=== PATIENT | male | born 1955 | race Caucasian/White ===

== ENCOUNTER 2016-06-27 15:59 | Observation (INO) | payer MEDICARE ==
[~2016-06-27] VITALS: Ht 188 cm; Wt 75.0 kg
[~2016-06-27 15:59] MED LIST: ALPR.5 PO; ASPI-156 PO; ATOR40TA16 PO; CEFT2INJ2 IV; EFFE150C PO; HYDR-3288 PO; HYDR50TA15 PO; LANTUS2P SQ/IV; LISI-515 PO; METF500T PO; MIRA0.12 PO; NICO7DIS5 T-DERMAL; NOVOLOGSS SQ; PLAV75TA29 PO; WALKER/FOLDING1 MIS
[2016-06-27 16:05] VITALS: BP 131/82; PULSE 85; RESP 14; TEMP 98.1; O2SAT 98
[2016-06-27 17:45] VITALS: BP 192/86; PULSE 80; RESP 16; O2SAT 100
[2016-06-27] MEDS ORDERED: SODIUM CHLORIDE 0.9% FLUSH 5 ML FLUSH IVF PRN (18:00)
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
[2016-06-27 18:10] VITALS: O2SAT 98
[2016-06-27 18:47] LABS: AUTOMATED NEUTROPHIL # 2.4 TH/MM3 (1.8-7.7); BASOPHIL % 0.4 % (0.0-2.0); EOSINOPHIL # 0.3 TH/MM3 (0-0.4); EOSINOPHIL % 5.2 % (0.0-4.0); HEMO FLAGS DIFF FINAL; LYMPHOCYTE # 1.9 TH/MM3 (1.0-4.8); MEAN CELL VOLUME 82.5 FL (80.0-100.0); MEAN CORPUSCULAR HEMOGLOBIN 26.6 PG (27.0-34.0); MEAN CORPUSCULAR HGB CONC 32.2 % (32.0-36.0); MONO % 9.3 % (0.0-8.0); NEUT % 47.1 % (16.0-70.0); PLATELET COUNT 321 TH/MM3 (150-450); RED BLOOD COUNT 4.01 MIL/MM3 (4.50-5.90); RED CELL DISTRIBUTION WIDTH 18.2 % (11.6-17.2)
[2016-06-27 18:52] LABS: APTT (PATIENT) 29.6 SEC (24.3-30.1); PROTHROMBIN TIME - PATIENT 10.7 SEC (9.8-11.6)
[2016-06-27 19:00] VITALS: BP 179/83; PULSE 76; RESP 14; O2SAT 96
[2016-06-27 19:05] LABS: BICARBONATE 22.7 MEQ/L (21.0-32.0); MAGNESIUM 2.1 MG/DL (1.5-2.5)
--- NOTE | 2016-06-27 19:43 | PD ---
Physical Exam Narrative General: The patient is well-developed well-nourished male, drowsy appearing on examination, however he is able to be aroused. Head and Neck exam: Head is normocephalic, evidence of an older-appearing abrasion along the right side of the forehead just above the eyebrow. Eyes: Pupils are equal round and reactive to light. Nose: Midline septum with pink mucous membranes Mouth: Dentition unremarkable. Moist mucus membranes. Posterior oropharynx is not erythematous. No tonsillar hypertrophy. Uvula midline. Airway patent. Neck: No palpable lymphadenopathy. No nuchal rigidity. No thyromegaly. Cardiovascular: Regular rate and rhythm without murmurs, gallops, or rubs. Lungs: Clear to auscultation bilaterally. No wheezes, rhonchi, or rales. Abdomen: Soft, without tenderness to palpation in all 4 quadrants of the abdomen. No guarding, rebound, or rigidity. Normal bowel sounds are audible. Extremities: No clubbing, cyanosis, or edema. 2+ pulses in bilateral upper extremities. 1+ pulse in the right lower extremity, no palpable pulse in the left lower extremity with a long capillary refill at 4 compared to the right. Both feet are slightly cold. The patient denies any pain to the touch of his feet. The patient has a slightly dusky coloration of the distal foot on the sole of the foot of the left foot compared to the right. Neurologic Exam: The patient is drowsy on exam although arousable. The patient quickly falls back asleep after answering simple questions. The patient has garbled speech although he has a history of a TBI. The Patient is able to move all extremities equally. Skin Exam: The Patient has bruises in various stages of healing on his extremities. The patient has occasional abrasions noted. On examination of the left lateral arm there is an area of swelling noted that palpates to be a subcutaneous cystic lesion. There is no tenderness on palpation. There is no fluctuance. There is no overlying erythema, however he has an abrasion overlying it. Data Data Last Documented VS Vital Signs Date Time Temp Pulse Resp B/P Pulse Ox O2 Delivery O2 Flow Rate FiO2 06/27/16 22:45 78 14 185/88 98 06/27/16 18:10 Room Air 06/27/16 16:05 98.1 Orders Basic Metabolic Panel (Bmp) (06/27/16 17:53) Complete Blood Count With Diff (06/27/16 17:53) Magnesium (Mg) (06/27/16 17:53) Prothrombin Time / Inr (Pt) (06/27/16 17:53) Act Partial Throm Time (Ptt) (06/27/16 17:53) Ecg Monitoring (06/27/16 17:53) Iv Access Insert/Monitor (06/27/16 17:53) Oximetry (06/27/16 17:53) Sodium Chloride 0.9% Flush (Ns Flush) (06/27/16 18:00) Cta Runoff W Iv Contrast W 3d (06/27/16 ) Creatine Kinase (Cpk) (06/27/16 17:53) CKMB (06/27/16 18:24) CKMB% (06/27/16 18:24) Ct Brain W/O Iv Contrast(Rout) (06/27/16 ) Ammonia (06/27/16 19:26) Chest, Single Ap (06/27/16 ) Electrocardiogram (06/27/16 ) Urinalysis - C+S If Indicated (06/27/16 19:28) Troponin I (06/27/16 19:29) Hepatic Functional Panel (06/27/16 19:30) Sodium Chlor 0.9% 1000 Ml Inj (Ns 1000 M (06/27/16 20:00) Drug Screen, Random Urine (06/27/16 19:54) Thyroid Stimulating Hormone (06/27/16 19:54) Alcohol (Ethanol) (06/27/16 19:54) Salicylates (Aspirin) (06/27/16 19:54) Tylenol (Acetaminophen) (06/27/16 19:54) ^ Straight Catheter (06/27/16 19:56) Iohexol 350 Inj (Omnipaque 350 Inj) (06/27/16 21:22) Urinary Catheter Insert/Apply (06/27/16 21:36) Admit Order (Ed Use Only) (06/27/16 22:48) Labs Laboratory Tests Test 06/27/16 06/27/16 06/27/16 18:24 19:56 20:02 White Blood Count 5.0 TH/MM3 Red Blood Count 4.01 MIL/MM3 Hemoglobin 10.6 GM/DL Hematocrit 33.0 % Mean Corpuscular Volume 82.5 FL Mean Corpuscular Hemoglobin 26.6 PG Mean Corpuscular Hemoglobin 32.2 % Concent Red Cell Distribution Width 18.2 % Platelet Count 321 TH/MM3 Mean Platelet Volume 7.3 FL Neutrophils (%) (Auto) 47.1 % Lymphocytes (%) (Auto) 38.0 % Monocytes (%) (Auto) 9.3 % Eosinophils (%) (Auto) 5.2 % Basophils (%) (Auto) 0.4 % Neutrophils # (Auto) 2.4 TH/MM3 Lymphocytes # (Auto) 1.9 TH/MM3 Monocytes # (Auto) 0.5 TH/MM3 Eosinophils # (Auto) 0.3 TH/MM3 Basophils # (Auto) 0.0 TH/MM3 CBC Comment DIFF FINAL Differential Comment Prothrombin Time 10.7 SEC Prothromb Time International 1.0 RATIO Ratio Activated Partial 29.6 SEC Thromboplast Time Sodium Level 135 MEQ/L Potassium Level 4.0 MEQ/L Chloride Level 101 MEQ/L Carbon Dioxide Level 22.7 MEQ/L Anion Gap 11 MEQ/L Blood Urea Nitrogen 14 MG/DL Creatinine 0.79 MG/DL Estimat Glomerular Filtration 100 ML/MIN Rate Random Glucose 69 MG/DL Calcium Level 8.7 MG/DL Magnesium Level 2.1 MG/DL Total Bilirubin 0.3 MG/DL Direct Bilirubin LESS THAN 0.1 MG/DL Indirect Bilirubin 0.2 MG/DL Aspartate Amino Transf 34 U/L (AST/SGOT) Alanine Aminotransferase 19 U/L (ALT/SGPT) Alkaline Phosphatase 104 U/L Total Creatine Kinase 320 U/L Creatine Kinase MB 3.1 NG/ML Creatine Kinase MB % 1.0 % Total Protein 7.3 GM/DL Albumin 3.2 GM/DL Thyroid Stimulating Hormone 1.120 uIU/ML 3rd Gen Salicylates Level 6.6 MG/DL Acetaminophen Level LESS THAN 2.0 MCG/ML Ethyl Alcohol Level LESS THAN 3 MG/DL Ammonia 11 MCMOL/L Troponin I LESS THAN 0.02 NG/ML Urine Color YELLOW Urine Turbidity CLEAR Urine pH 5.0 Urine Specific [place] 1.011 Urine Protein NEG mg/dL Urine Glucose (UA) NEG mg/dL Urine Ketones 40 mg/dL Urine Occult Blood SMALL Urine Nitrite NEG Urine Bilirubin NEG Urine Urobilinogen LESS THAN 2.0 MG/DL Urine Leukocyte Esterase NEG Urine RBC 21 /hpf Urine WBC 1 /hpf Urine Bacteria RARE /hpf Urine Mucus FEW /lpf Microscopic Urinalysis Comment CULT NOT INDICATED Urine Opiates Screen NEG Urine Barbiturates Screen NEG Urine Amphetamines Screen NEG Urine Benzodiazepines Screen POS Urine Cocaine Screen NEG Urine Cannabinoids Screen NEG MDM Medical Record Reviewed: Yes Supervised Visit with CRISTIN: Yes Differential Diagnosis Peripheral vascular disease status continued to progress, versus acute peripheral arterial thrombosis, versus embolic event Narrative Course During the course of the patients emergency department visit, the patients history, examination, and differential diagnosis were reviewed with the patient. The patient had IV access obtained and blood work sent for analysis. The patient was placed on a grips with oximetry and blood pressure monitoring. The patient was initially evaluated by Scott, the physician bilingual legal assistant. Please see his complete history and physical. The patient was checked out to me at the conclusion of his shift. The patient on my arrival to the room is drowsy and difficult to keep awake to answer questions. The patient 's initial blood work revealed a blood sugar of 69. Therefore the patient's blood sugar was immediately repeated. The patient's blood sugar is 72. The patient was provided normal saline at a rate of 100 mL per hour. The patients laboratory studies were reviewed and remarkable for a white count of 5, hemoglobin 10.6, platelets 321 with 9.3 monocytes. Basic metabolic profile is remarkable for sodium of 135, glucose 69, CPK 320, magnesium 2.1, INR 1.0, PT 10.7, PTT 29.6. Radiology studies were reviewed and remarkable for CT scan of the brain that showed no acute abnormality, frontal sinus disease is noted. Chest x-ray reveals no acute cardiopulmonary process, fracture deformity at the left proximal humerus is noted, however this is chronic from reviewing the record. CTA with runoff reveals areas of occlusion/partial occlusion in the left lower extremity. The patient's case was discussed with the family practice residents who did agree to admit the patient for further evaluation and treatment at this time. The patient will be admitted to the hospital for altered mentation and peripheral arterial disease. Jess Willson MD Jun 27, 2016 19:43
[2016-06-27 19:54] LABS: CKMB 3.1 NG/ML (0.5-3.6)
[2016-06-27] MEDS: SODIUM CHLOR 0.9% 1000 ML INJ 1,000 ML IV SCH (19:54)
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
--- NOTE | 2016-06-27 20:32 | RADRPT ---
EXAM DATE/TIME: 06/27/2016 19:35 [facility] COMPARISON: CHEST SINGLE AP, May 08, 2016, 16:26. INDICATIONS : Wheezing. Short of breath. MEDICAL HISTORY : Hypertension. Diabetes mellitus type II. SURGICAL HISTORY : None. ENCOUNTER: Initial ACUITY: 1 day PAIN SCORE: Non-responsive. LOCATION: Bilateral chest FINDINGS: The heart size is normal. The lungs are clear. The costophrenic angles are clear. The heart is str ucturally normal. There is a fracture deformity seen at the proximal left humerus. This was present previously. CONCLUSION: 1. No acute cardiopulmonary process. 2. Fracture deformity at the left proximal humerus. Ezequiel Adamson MD on June 27, 2016 at 20:11 Board Certified Radiologist. This report was verified electronically.
[2016-06-27 20:51] LABS: ALKALINE PHOSPHATASE 104 U/L (45-117); ALT (GPT) 19 U/L (12-78); AST (GOT) 34 U/L (15-37); INDIRECT BILIRUBIN 0.2 MG/DL (0.0-0.8); TOTAL BILIRUBIN ADULT 0.3 MG/DL (0.2-1.0)
[2016-06-27 20:58] LABS: ACETAMINOPHEN LESS THAN 2.0 MCG/ML (10.0-30.0)
[2016-06-27] MEDS ORDERED: IOHEXOL 350 MG/ML 10 ML VIAL (for RAD DIAG) IV ONE (21:22)
--- NOTE | 2016-06-27 21:54 | RADRPT ---
EXAM DATE/TIME: 06/27/2016 21:18 [facility] COMPARISON: CT BRAIN W/O CONTRAST, April 30, 2016, 12:09. INDICATIONS : Altered mental status; generalized weakness. RADIATION DOSE: 57.71 CTDIvol (mGy) MEDICAL HISTORY : Cerebrovascular disease. Parkinsons. Hypertension.TBI; Diabetes. SURGICAL HISTORY : None. ENCOUNTER: Initial ACUITY: 1 day PAIN SCALE: 0/10 LOCATION: cranial TECHNIQUE: Multiple contiguous axial images were obtained of the head. Using automated exposure control and adj ustment of the mA and/or kV according to patient size, radiation dose was kept as low as reasonably a chievable to obtain optimal diagnostic quality images. FINDINGS: CEREBRUM: The ventricles are normal for age. No evidence of midline shift, mass lesion, hemorrhage or acute in farction. No extra-axial fluid collections are seen. POSTERIOR FOSSA: The cerebellum and brainstem are intact. The 4th ventricle is midline. The cerebellopontine angle i s unremarkable. EXTRACRANIAL: The visualized portion of the orbits is intact. There is mucosal disease of the frontal sinuses. SKULL: The calvaria is intact. No evidence of skull fracture. CONCLUSION: 1. No intracranial abnormality seen. 2. Frontal sinus disease. Ezequiel Adamson MD on June 27, 2016 at 21:52 Board Certified Radiologist. This report was verified electronically.
[2016-06-27 22:10] LABS: AMPHETAMINE, URINE NEG (NEG); BARBITURATES, URINE NEG (NEG); COCAINE, URINE NEG (NEG)
[2016-06-27 22:12] LABS: BACTERIA, URINE RARE /hpf; BLOOD, URINE SMALL (NEG); COMMENT (UR) CULT NOT INDICATED; CULTURE IF INDICATED CULT NOT INDICATED; GLUCOSE,URINE NEG (NEG); KETONE, URINE 40 mg/dL (NEG); MUCUS URINE FEW /lpf (OCC); NITRITE,URINE NEG (NEG); URINE COLOR YELLOW (YELLW/STRAW)
[2016-06-27 22:45] VITALS: BP 185/88; PULSE 78; RESP 14; O2SAT 98
[2016-06-28] MEDS ORDERED: hydrALAZINE HCL 10 MG TAB PO ONE (00:15)
[2016-06-28] MEDS ORDERED: GLUCAGON 1 MG/ML VIAL OTHER PRN (00:45)
[2016-06-28] MEDS ORDERED: SODIUM CHLORIDE 0.9% FLUSH 5 ML FLUSH FLUSH PRN (00:45)
[2016-06-28] MEDS ORDERED: ACETAMINOPHEN 325 MG TAB PO PRN (00:45)
[2016-06-28] MEDS ORDERED: NALOXONE HCL 0.4 MG/ML AMP IV PRN (00:45)
[2016-06-28] MEDS ORDERED: ALPRAZolam 0.5 MG TAB PO PRN (00:45)
[2016-06-28] MEDS ORDERED: DEXTROSE 50% IN WATER 50 ML VIAL(D50) IV PUSH PRN (00:45)
[2016-06-28] MEDS: hydrALAZINE HCL 50 MG TAB PO SCH ×2 (00:45→09:26)
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
[2016-06-28 01:28] VITALS: O2SAT 98
[2016-06-28] MEDS ORDERED: ENALAPRILAT 1.25 MG/ML VIAL IV PUSH PRN (02:00)
[2016-06-28 03:01] VITALS: BP 174/79; PULSE 80; RESP 16; O2SAT 98
[2016-06-28] MEDS ORDERED: RESP: ALBUTEROL 2.5 MG/IPRATROPIUM 0.5 MG NEB (PRN) NEB (03:15)
[2016-06-28] MEDS: SODIUM CHLOR 0.9% 1000 ML INJ 1,000 ML IV SCH (03:42)
[2016-06-28 03:55] VITALS: BP 160/69; PULSE 77; RESP 18; TEMP 96.3; O2SAT 99
[2016-06-28] MEDS: ACETAMINOPHEN/HYDROcodone 325 MG/5 MG TAB PO PRN ×2 (04:05→09:34)
[2016-06-28 06:05] LABS: AUTOMATED NEUTROPHIL # 3.9 TH/MM3 (1.8-7.7); BASOPHIL % 0.3 % (0.0-2.0); EOSINOPHIL # 0.3 TH/MM3 (0-0.4); EOSINOPHIL % 3.7 % (0.0-4.0); HEMO FLAGS DIFF FINAL; LYMPH % 28.7 % (9.0-44.0); LYMPHOCYTE # 1.9 TH/MM3 (1.0-4.8); MEAN CORPUSCULAR HEMOGLOBIN 26.7 PG (27.0-34.0); MEAN CORPUSCULAR HGB CONC 32.5 % (32.0-36.0); MONO % 9.1 % (0.0-8.0); NEUT % 58.2 % (16.0-70.0); PLATELET COUNT 313 TH/MM3 (150-450); RED BLOOD COUNT 4.26 MIL/MM3 (4.50-5.90); RED CELL DISTRIBUTION WIDTH 17.6 % (11.6-17.2); WHITE BLOOD COUNT 6.8 TH/MM3 (4.0-11.0)
[2016-06-28 06:36] LABS: BICARBONATE 19.5 MEQ/L (21.0-32.0); POTASSIUM 3.8 MEQ/L (3.5-5.1)
[2016-06-28 06:38] LABS: HDL CHOLESTEROL 44.6 MG/DL (40.0-60.0)
[2016-06-28] MEDS ORDERED: INSULIN ASPART SUPPLEMENTAL SCALE SQ SCH (07:00)
[2016-06-28 08:26] VITALS: BP 175/82; PULSE 81; RESP 20; TEMP 96.9; O2SAT 97
[2016-06-28 08:33] VITALS: O2SAT 97
[2016-06-28] MEDS ORDERED: ENOXAPARIN SODIUM 40 MG/0.4 ML SYRINGE SQ SCH (09:00)
[2016-06-28] MEDS ORDERED: VENLAFAXINE HCL XR 75 MG CAP PO SCH (09:00)
[2016-06-28] MEDS ORDERED: CLOPIDOGREL 75 MG TAB PO SCH (09:00)
[2016-06-28] MEDS ORDERED: SODIUM CHLORIDE 0.9% FLUSH 5 ML FLUSH FLUSH SCH (09:00)
[2016-06-28] MEDS ORDERED: ERGOCALCIFEROL (VIT D2) 50,000 UNIT CAP PO SCH (09:00)
[2016-06-28] MEDS ORDERED: ATORVASTATIN 40 MG TAB PO SCH (09:00)
[2016-06-28] MEDS ORDERED: ASPIRIN EC 325 MG TABEC PO SCH (09:00)
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
--- NOTE | 2016-06-28 09:37 | HHI.FF ---
Face to Face Verification Diagnosis: (1) Peripheral vascular disease (2) Balance disorder (3) Frequent falls Physical Therapy Order: Evaluate and Treat, Improve ambulation, Strength and gait training Home Health Aide Order: To Assist In: pneudraulic systems mechanic and meal prep I have seen patient Danie Jay on 06/28/16. My clinical findings support the need for the requested home health care services because: Deconditioned w/ increased weakness High risk of falls I certify that my clinical findings support that this patient is homebound because: Unsteady gait/balance Chelsy Batres MD R3 Jun 28, 2016 09:36
[2016-06-28] MEDS ORDERED: WHEEMIS3 (09:38)
[2016-06-28] MEDS ORDERED: DRIS50002 PO (09:44)
--- NOTE | 2016-06-28 10:39 | RADRPT ---
EXAM DATE/TIME: 06/27/2016 21:22 [facility] COMPARISON: CTA RUNOFF W 3D RECON, September 28, 2011, 9:55. INDICATIONS : Bilateral lower extremity pain for 3 years; worsening over the past few days. IV CONTRAST: 93 cc Omnipaque 350 (iohexol) IV RADIATION DOSE: 10.23 CTDIvol (mGy) MEDICAL HISTORY : Cardiovascular disease. Hypertension. Diabetes mellitus type 2. SURGICAL HISTORY : None. ENCOUNTER: Initial ACUITY: >1 yr PAIN SCALE: 10/10 LOCATION: Bilateral Lower extremities TECHNIQUE: Volumetric scanning was performed using a multi-row detector CT scanner. The data was post processed with a variety of visualization algorithms including full volume maximum intensity projection, multi -planar sliding thin slab reformation, curved planar reformation, and surface rendering techniques. Using automated exposure control and adjustment of the mA and/or kV according to patient size, radiat ion dose was kept as low as reasonably achievable to obtain optimal diagnostic quality images. FINDINGS: ABDOMINAL AORTA: Extensive noncalcified and calcified plaque is present throughout the abdominal aorta. Moderate lumin al compromise is identified in the infrarenal abdominal aorta with degree of stenosis approaching 50% at the aortoiliac bifurcation. Significant plaque remains evident at the origin of the celiac, superior mesenteric and renal ar teries. The celiac artery demonstrates a iyib-lj-npilofqx stenosis measuring slightly less than 50%. The superior mesenteric artery has a moderate to severe stenosis in the 50-69% range. Mild stenosis i s noted at the origin of the renal arteries. BIFURCATION: Significant plaque is seen at the bifurcation. An endovascular stent has been placed at the origin of the right common iliac artery when compared to previous study. The stent appears patent however ther e is overhanging noncalcified plaque over its origin from the abdominal aortic area. Moderate plaque at the origin of the left common iliac artery continues to cause moderate narrowing. RIGHT PELVIS: The right iliac system is patent. There is an endovascular stent extending from the origin of the ext ernal iliac artery to inguinal ligament. Focal narrowing is seen at the origin of the stent somewhat appears to be intimal hyperplasia. LEFT PELVIS: Diffuse narrowing is again noted of the proximal left external iliac artery. There is moderate irregu lar luminal stenosis approaching 50%. RIGHT LOWER EXTREMITY: Diffuse atherosclerotic disease is noted throughout the femoral vessels. There is eccentric calcified plaque in the distal SFA at the adductor canal resulting in moderate stenosis. There is no evidence of high-grade femoral or popliteal sclerotic lesions. Three-vessel runoff is identified to the proxim al calf. LEFT LOWER EXTREMITY: Severe vascular disease is identified in the left femoral vessels. The patient has had a endovascular stent placed in the distal SFA. The proximal to mid SFA demonstrates severe diffuse narrowing charac teristic of a string sign. Patency of the stent cannot be confirmed. The popliteal artery distal to t he stent is small in caliber but patent. Three-vessel runoff is identified to the proximal calf. Miscellaneous: Mildly hyperdense fluid collection in the left gluteal muscles is noted. Liver, spleen, pancreas adre nal glands and kidneys appear stable. There are no acute intestinal abnormalities. Staton catheter is noted in place. Moderate-sized left knee joint effusion is noted. CONCLUSION: Advanced atherosclerotic vascular disease. Large segmental critical stenosis in the left superficial femoral artery following distal SFA stent p lacement. Patency of the stent cannot be confirmed. Significant aortoiliac bifurcation disease consisting of moderate plaque involving the distal aorta a nd proximal iliac vessels as described. Suspect developing stenosis at the origin of a right external iliac stent. Diffuse narrowing of the left external iliac artery which is moderate in severity. Mild to moderate narrowing of the distal right SFA. Moderate to severe stenosis of the proximal superior mesenteric artery. Acute to subacute left gluteal hematoma. Left knee effusion. Richmond Martell MD on June 28, 2016 at 9:36 Board Certified Radiologist. This report was verified electronically.
[2016-06-28 11:49] VITALS: BP 157/73; PULSE 103; RESP 20; TEMP 98; O2SAT 95
--- NOTE | 2016-06-28 15:22 | EKG ---
Date Performed: 06/27/2016 Time Performed: 20:04:14 PTAGE: 60 years EKG: Sinus rhythm Compared to prior tracing no significant change NORMAL ECG PREVIOUS TRACING : 04/30/2016 11.48 DOCTOR: Presley Waddell Interpretating Date/Time 06/28/2016 15:21:42
[2016-06-30] MEDS ORDERED: METF500T PO (14:29)
[2016-06-30] MEDS ORDERED: HYDR50TA15 PO (21:55)
[2016-07-01] MEDS ORDERED: LOSA50TA PO (22:00)
[2016-07-03] MEDS ORDERED: ALPR.5 PO (08:22)
[2016-07-06] MEDS ORDERED: METF500T PO ×2 (14:32→14:33)
[2016-07-24] MEDS ORDERED: INSU-277 (16:53)
[2016-07-24] MEDS ORDERED: ATOR40TA16 PO (17:00)
[2016-07-24] MEDS ORDERED: DRIS50002 PO (17:00)
[2016-07-24] MEDS ORDERED: LOSA50TA PO (17:00)
[2016-07-24] MEDS ORDERED: BD L33MI INJ (17:07)
[2016-08-22] MEDS ORDERED: GLUCTES27 (09:04)
[2016-08-22] MEDS ORDERED: ONETTES4 (09:05)
[2016-08-23] MEDS ORDERED: LOSA50TA PO (17:56)
[2016-09-11] MEDS ORDERED: ONETTES4 (17:06)
[2016-09-13] MEDS ORDERED: METF500T PO (16:09)
[2016-09-16] MEDS ORDERED: ONETTES4 (17:15)
[2016-09-16] MEDS ORDERED: GLUCTES27 (17:15)
[2016-11-02] MEDS ORDERED: HYDR-3800 PO (21:33)
== END 2016-06-28 16:59 | disposition home or self-care (01) ==
LOC: NEPC 15:59 → NEDA 22:50 → NEPFCDU 06-28 03:45
PROVIDERS: ADMIT Family Medicine; ATTEND Family Medicine
DX: R41.82 Altered mental status, unspecified (principal); I73.9 Peripheral vascular disease, unspecified; J44.9 Chronic obstructive pulmonary disease, unspecified; D64.9 Anemia, unspecified; R40.0 Somnolence; E11.9 Type 2 diabetes mellitus without complications; K57.92 Diverticulitis of intestine, part unspecified, without perforation or abscess without bleeding; I10 Essential (primary) hypertension; G20 Parkinson's disease; F43.10 Post-traumatic stress disorder, unspecified; G47.30 Sleep apnea, unspecified; F17.210 Nicotine dependence, cigarettes, uncomplicated; M79.605 Pain in left leg; M25.462 Effusion, left knee; R06.02 Shortness of breath; R05 Cough; R29.6 Repeated falls; Z87.820 Personal history of traumatic brain injury; Z86.73 Personal history of transient ischemic attack (TIA), and cerebral infarction without residual deficits; Z79.01 Long term (current) use of anticoagulants
CPT/HCPCS: 51703; 70450; 71010; 75635; 80048; 80061; 80076; 80307; 80320; 81001; 82140; 82306; 82550; 82552; 82948; 83735; 84443; 84484; 85025; 85610; 85652; 85730; 86140; 93005; 96360; 97163; 99285; G0378; G8987; G8988; J1650; J7030; Q9967; 80329; G0480

== ENCOUNTER 2016-07-25 09:56 | Day surgery (SDC) | payer MEDICARE ==
[~2016-07-25] VITALS: Ht 188 cm; Wt 74.8 kg
[~2016-07-25 09:56] MED LIST changes: +BD L33MI INJ; -CEFT2INJ2 IV; +DRIS50002 PO; -HYDR-3288 PO; -LISI-515 PO; +LOSA50TA PO; -MIRA0.12 PO; -NICO7DIS5 T-DERMAL; +WHEEMIS3
[2016-07-25] MEDS ORDERED: SODIUM CHLORIDE 0.9% FLUSH 5 ML FLUSH IV FLUSH PRN (10:15)
[2016-07-25] MEDS ORDERED: SODIUM BICARBONATE 100 MEQ in D5W 1000 ML IV SCH (10:30)
[2016-07-25] MEDS ORDERED: ERGO1CAP10 PO (10:49)
[2016-07-25] MEDS ORDERED: PRIM50TA5 PO (10:49)
[2016-07-25] MEDS ORDERED: [UNRECOGNIZED DRUG - CODE] PO (10:49)
[2016-07-25 10:52] VITALS: BP 162/93; PULSE 70; RESP 18; TEMP 97.9; O2SAT 99
[2016-07-25 11:38] LABS: AUTOMATED NEUTROPHIL # 2.5 TH/MM3 (1.8-7.7); BASOPHIL % 0.5 % (0.0-2.0); EOSINOPHIL # 0.4 TH/MM3 (0-0.4); EOSINOPHIL % 6.3 % (0.0-4.0); HEMATOCRIT 35.2 % (39.0-51.0); HEMO FLAGS DIFF FINAL; LYMPH % 40.8 % (9.0-44.0); LYMPHOCYTE # 2.4 TH/MM3 (1.0-4.8); MEAN CELL VOLUME 82.5 FL (80.0-100.0); MEAN CORPUSCULAR HEMOGLOBIN 26.7 PG (27.0-34.0); MEAN CORPUSCULAR HGB CONC 32.3 % (32.0-36.0); MONO % 10.1 % (0.0-8.0); NEUT % 42.3 % (16.0-70.0); PLATELET COUNT 267 TH/MM3 (150-450); RED BLOOD COUNT 4.27 MIL/MM3 (4.50-5.90); RED CELL DISTRIBUTION WIDTH 20.9 % (11.6-17.2)
[2016-07-25 11:49] LABS: APTT (PATIENT) 26.1 SEC (24.3-30.1); INTERNATIONAL NORMALIZED RATIO 0.9 RATIO; PROTHROMBIN TIME - PATIENT 10.4 SEC (9.8-11.6)
[2016-07-25] MEDS ORDERED: IOHEXOL 350 MG/ML 100 ML BTL (for Cath Lab) OTHER ONE (12:11)
[2016-07-25 12:16] LABS: BICARBONATE 27.9 MEQ/L (21.0-32.0); POTASSIUM 4.3 MEQ/L (3.5-5.1)
[2016-07-25] MEDS ORDERED: HEPARIN-NS/PF INJ 500 ML ONE (12:18)
[2016-07-25] MEDS ORDERED: NITROGLYCERIN INJ 5 ML ONE (12:19)
[2016-07-25] MEDS ORDERED: MIDAZOLAM HCL 2 MG/2 ML VIAL ONE ×2 (12:19→13:29)
[2016-07-25] MEDS ORDERED: HEPARIN SODIUM - IV 10,000 UNITS/10 ML VIAL ONE (12:19)
[2016-07-25] MEDS ORDERED: CLOPIDOGREL 75 MG TAB PO ONE (13:45)
--- NOTE | 2016-07-25 13:45 | HHI.PR ---
Immediate Post Op Note Procedure Date: Jul 25, 2016 Pre Op Diagnosis: PAD, L LE claudication Post Op Diagnosis: PAD, L LE claudication Surgeon: Jann Gamez Lead Material Handler(s): none Procedure: Aortogram w/ L LE angiogram L SFA POWER WHEELCHAIR MECHANIC (DCB distally for ISR) R SECTION 8 PROPERTY MANAGER angioseal Findings: occluded SFA stent, POWER WHEELCHAIR MECHANIC and opened 3V runoff Complications: none Specimen(s) removed: none Estimated blood loss: trace Anesthesia: MAC Drains: None Patient to: Other (DOCU) Patient Condition: Good Implant/Devices: SEE IMPLANT LOG (if applicable) Date/Time of Procedure: SEE SURGICAL CARE RECORD Jann Gamez MD Jul 25, 2016 13:45
--- NOTE | 2016-07-25 13:49 | PD.VS.DC ---
Discharge Summary Admission Date: 07/25/16 Discharge Date: Jul 25, 2016 Admission Diagnosis: (1) Peripheral arterial disease Discharge Diagnosis: (1) Peripheral vascular disease Status: Chronic Brief History from admission Pt with L LE claudication and failed prior L LE intervention. Underwent aortogram w/ LLE angiogram and L SFA SIGN LANGUAGE TRANSLATOR. did well. discharged DOS. Procedure(s): Aortogram w/ L LE angiogram L SFA SIGN LANGUAGE TRANSLATOR Significant Findings Laboratory Tests Test 07/25/16 11:05 Red Blood Count 4.27 MIL/MM3 (4.50-5.90) Hemoglobin 11.4 GM/DL (13.0-17.0) Hematocrit 35.2 % (39.0-51.0) Mean Corpuscular Hemoglobin 26.7 PG (27.0-34.0) Red Cell Distribution Width 20.9 % (11.6-17.2) Monocytes (%) (Auto) 10.1 % (0.0-8.0) Eosinophils (%) (Auto) 6.3 % (0.0-4.0) Chloride Level 108 MEQ/L (98-107) Random Glucose 129 MG/DL (74-106) Hospital Course: Pt being discharged same day after L LE SFA SIGN LANGUAGE TRANSLATOR. No procedural complications Discharge Condition: Good Discharge Disposition: Discharge Home Any questions or concerns: Call [facility] at [facility] [phone] Jann Gamez MD Jul 25, 2016 13:49
[2016-07-25] MEDS ORDERED: CLOPIDOGREL 75 MG TAB ONE (14:00)
[2016-07-25] MEDS ORDERED: SODIUM CHLORIDE 0.9% FLUSH 5 ML FLUSH IV FLUSH SCH (21:00)
--- NOTE | 2016-07-26 09:39 | MP ---
cc: SANJAY GAMEZ MD DATE OF SURGERY 07/25/16 PREOPERATIVE DIAGNOSIS Left lower extremity claudication, peripheral vascular occlusive disease. POSTOPERATIVE DIAGNOSIS Left lower extremity claudication, peripheral vascular occlusive disease. PROCEDURE 1. Aortogram with left lower extremity angiograms 2. Left superficial femoral artery angioplasty with a 5 mm drug coated balloon distally and 5 x 80 non drug coated balloon proximally. 3. Right common femoral artery Angioseal. ATTENDING SURGEON Tracey Gamez MD ANESTHESIA Local with sedation INDICATIONS Mr. Jay is a 60 year old gentleman with a left leg claudication. He has a previous superficial femoral artery stent and the stent is believed to be occluded by physical examination. He was taken to operating room for angiographic evaluation and treatment. There was no prior catheterization imaging available for my review. PROCEDURE IN DETAIL Informed consent was obtained. The patient was taken to the operating room, placed supine on the operating room table. An appropriate time out was taken to ensure the patient's identity and operative site and planned procedure. The administration of antibiotics was unnecessary as this is a clean procedure without any planned implantation of any foreign object. Everyone in the room agreed to timeout and we proceeded. His right groin was prepped and draped and locally anesthetized with 1% Lidocaine. A 21 gauge micropuncture needle was used to access the right femoral artery. This was exchanged using Seldinger technique and micropuncture sheath through which a common femoral arteriogram was obtained. A 0.035 Glidewire was inserted through the micropuncture sheath which was exchanged for a 4 Thai sheath and the VCF catheter was placed over the wire and through the sheath and the aortogram and pelvic arteriogram was obtained. The Glidewire was then navigated down to the left common femoral artery and a VCF catheter was attempted to be passed down the left common femoral artery. This was unsuccessful and as such the VCF was exchanged for a Kumpe catheter which was able to be passed down to the left common femoral artery and left lower extremity arteriogram was obtained. The patient was systemically heparinized with 5000 units of IV heparin. Forty five minutes later, 3000 additional units were administered. A 0.035 Hughes wire was introduced and passed down to the profunda. The Comfy catheter and 4 Thai sheath were removed and a 6 Thai 55 cm Talib sheath was introduced. The Hughes was exchanged for a 0.014 SPECIAL EDUCATION INCLUSION TEACHER wire and then was used to navigate down to the superficial femoral artery. The Comfy was exchanged for a CXI catheter and using the SPECIAL EDUCATION INCLUSION TEACHER wire and CXI catheter we were able to navigate through the superficial femoral artery occluded stent and into the popliteal artery, an angiogram confirming the popliteal artery and the Hughes was reintroduced. The entire superficial femoral artery was angioplastied with a 4 mm balloon and then a 5 mm drug coated balloon distally. The completion angiogram showed excellent result distally but proximally the patient still had what appeared to be a flow limiting dissection. The drug coated balloon was removed and a 5 x 80 balloon was used to angioplasty the proximal aspect of the superficial femoral artery. The completion angiogram showed excellent result without any flow-limiting dissection or extravasation. The wire, catheter and sheath were removed and the groin was closed with Angioseal. There were no complications. I was present to perform the entire procedure. INTERPRETATION The patient has patent renal arteries, patent infrarenal aortic common iliac arteries. The right common iliac artery has a stent that appears small but patent. Both of the gastric arteries were patent. The external iliac artery on the right is stented with no in-stent stenosis. The left common femoral and profunda are patent. The left superficial femoral artery is very dimunitive and then occludes at the area of what appears to be an Idev stent with reconstitution distally. After successful navigation through the Idev stent, we are able to recanalize it and angioplasty it. There is a flow-limiting dissection proximally that is treated with repeat angioplasty without any negative sequelae. MD JOSE LUIS Parikh/ /2:14 PM /9:18 AM ALEE
[2016-08-22] MEDS ORDERED: GLUCTES27 (09:04)
[2016-08-22] MEDS ORDERED: ONETTES4 (09:05)
[2016-08-23] MEDS ORDERED: LOSA50TA PO (17:56)
[2016-09-11] MEDS ORDERED: ONETTES4 (17:06)
[2016-09-13] MEDS ORDERED: METF500T PO (16:09)
[2016-09-16] MEDS ORDERED: ONETTES4 (17:15)
[2016-09-16] MEDS ORDERED: GLUCTES27 (17:15)
[2016-11-02] MEDS ORDERED: HYDR-3800 PO (21:33)
== END 2016-07-25 18:25 | disposition home or self-care (01) ==
LOC: HCAT 09:56 → HDIC 09:56 → HCAT 18:25
PROVIDERS: ATTEND Surgery
DX: I70.212 Atherosclerosis of native arteries of extremities with intermittent claudication, left leg (principal); I10 Essential (primary) hypertension; E11.9 Type 2 diabetes mellitus without complications; J44.9 Chronic obstructive pulmonary disease, unspecified; Z79.01 Long term (current) use of anticoagulants
CPT/HCPCS: 36247; 37224; 75625; 75710; 80048; 85025; 85610; 85730; C1725; C1751; C1760; C1769; C1893; C2623; G0269; J1644; J2250; J3010; J7070; Q9967

== ENCOUNTER 2017-01-09 14:09 | Inpatient (IN) | payer MEDICARE ==
[~2017-01-09] VITALS: Ht 188 cm; Wt 86.9 kg
[~2017-01-09 14:09] MED LIST changes: -ATOR40TA16 PO; -DRIS50002 PO; +ERGO1CAP10 PO; +GLUCTES27; +HYDR-3800 PO; +ONETTES4; +PRIM50TA5 PO; +[UNRECOGNIZED DRUG - CODE] PO
[2017-01-09 14:30] VITALS: BP 171/77; PULSE 72; RESP 20; TEMP 97.7; O2SAT 96
[2017-01-09] MEDS ORDERED: SODIUM CHLOR 0.9% 1000 ML INJ 1,000 ML IV ONE ×3 (14:45→20:30)
[2017-01-09 15:29] LABS: AUTOMATED NEUTROPHIL # 7.7 TH/MM3 (1.8-7.7); BASOPHIL % 0.2 % (0.0-2.0); EOSINOPHIL # 0.4 TH/MM3 (0-0.4); EOSINOPHIL % 3.5 % (0.0-4.0); HEMATOCRIT 41.6 % (39.0-51.0); HEMO FLAGS DIFF FINAL; LYMPH % 19.5 % (9.0-44.0); LYMPHOCYTE # 2.2 TH/MM3 (1.0-4.8); MEAN CELL VOLUME 89.4 FL (80.0-100.0); MEAN CORPUSCULAR HEMOGLOBIN 30.6 PG (27.0-34.0); MEAN CORPUSCULAR HGB CONC 34.2 % (32.0-36.0); MONO % 7.8 % (0.0-8.0); PLATELET COUNT 236 TH/MM3 (150-450); RED BLOOD COUNT 4.66 MIL/MM3 (4.50-5.90); RED CELL DISTRIBUTION WIDTH 15.3 % (11.6-17.2); WHITE BLOOD COUNT 11.1 TH/MM3 (4.0-11.0)
[2017-01-09 15:45] LABS: ALT (GPT) 23 U/L (12-78); ANION GAP 10 MEQ/L (5-15); AST (GOT) 26 U/L (15-37); BLOOD UREA NITROGEN 13 MG/DL (7-18); CHLORIDE 106 MEQ/L (98-107); GLOMERULAR FILTRATION RATE 82 ML/MIN (>89); POTASSIUM 3.7 MEQ/L (3.5-5.1); SODIUM (NA) 136 MEQ/L (136-145)
[2017-01-09 15:48] LABS: ALKALINE PHOSPHATASE 105 U/L (45-117); CREATINE KINASE 344 U/L (39-308); TOTAL BILIRUBIN ADULT 0.4 MG/DL (0.2-1.0)
[2017-01-09 16:00] LABS: CKMB 4.3 NG/ML (0.5-3.6)
--- NOTE | 2017-01-09 16:20 | RADRPT ---
EXAM DATE/TIME: 01/09/2017 15:31 [facility] COMPARISON: CT BRAIN W/O CONTRAST, June 27, 2016, 21:18. INDICATIONS : Patient fell, hitting forehead. RADIATION DOSE: 36.83 CTDIvol (mGy) MEDICAL HISTORY : Cerebrovascular disease. Hypertension. Diabetes mellitus type 1. SURGICAL HISTORY : Traumatic brain surgery ENCOUNTER: Initial ACUITY: 1 day PAIN SCALE: 5/10 LOCATION: cranial TECHNIQUE: Multiple contiguous axial images were obtained of the head. Using automated exposure control and adj ustment of the mA and/or kV according to patient size, radiation dose was kept as low as reasonably a chievable to obtain optimal diagnostic quality images. DICOM format image data is available electro nically for review and comparison. FINDINGS: CEREBRUM: The ventricles are normal for age. No evidence of midline shift, mass lesion, hemorrhage or acute in farction. No extra-axial fluid collections are seen. POSTERIOR FOSSA: The cerebellum and brainstem are intact. The 4th ventricle is midline. The cerebellopontine angle i s unremarkable. EXTRACRANIAL: The visualized portion of the orbits is intact. There is opacification of the left frontal sinus. Mil d mucosal disease at the right frontal sinus. There is an area of increased focal density in the righ t occipital scalp area likely related to a hematoma measuring approximately 1.4 cm. SKULL: The calvaria is intact. No evidence of skull fracture. CONCLUSION: 1. No intracranial abnormality seen. 2. Suspected right occipital scalp hematoma. 3. Left frontal and to a lesser degree, right frontal sinus disease. Ezequiel Adamson MD on January 09, 2017 at 16:07 Board Certified Radiologist. This report was verified electronically.
--- NOTE | 2017-01-09 16:40 | RADRPT ---
EXAM DATE/TIME: 01/09/2017 15:40 [facility] COMPARISON: CHEST SINGLE AP, June 27, 2016, 19:35. INDICATIONS : Chest pain and weakness. MEDICAL HISTORY : Cardiovascular disease. Hypertension. Diabetes mellitus type 2. SURGICAL HISTORY : None. ENCOUNTER: Initial ACUITY: 1 day PAIN SCORE: Non-responsive. LOCATION: Bilateral chest FINDINGS: A single view of the chest demonstrates the lungs to be symmetrically aerated without evidence of mas s, infiltrate or effusion. The cardiomediastinal contours are unremarkable. Osseous structures are intact. CONCLUSION: 1. No acute cardiopulmonary findings. Stable examination compared to previous dated 06/27/16. Vicente Ryder MD on January 09, 2017 at 16:38 Board Certified Radiologist. This report was verified electronically.
--- NOTE | 2017-01-09 16:56 | PD ---
HPI Chief Complaint: General Weakness Time Seen by Provider: 14:35 Travel History International Travel<30 days: No Contact w/Intl Traveler<30days: No Traveled to known affect area: No History of Present Illness HPI 61-year-old man who presents to the emergency department after being found down. He was found on the floor by family. He has generalized weakness. Does not only was down there. Feeling like he had some slurred speech as well. History of Parkinson's. He states sometimes she gets a little bit unsteady from the Parkinson's. Denies any other recent illness or injury. Incontinent of stool and urine. History Past Medical History Narrative Medical Diabetes Hypertension Parkinson's Tetanus Vaccination: < 5 Years Influenza Vaccination: No Social History Alcohol Use: No Tobacco Use: Yes (1PPD) Allergies-Medications (Allergen,Severity, Reaction): Coded Allergies: No Known Allergies (Verified , 01/09/17) Reported Meds & Prescriptions Reported Meds & Active Scripts Active Hydralazine HCl 50 Mg Tablet 50 Mg PO BID [employer] Ultra Test Strips (Blood Glucose Test Strips) 1 Jovita Jovita 1 Strip .XX TID InnoCC Contour Next Blood Test Strips (Blood Glucose Test Strips) 1 Jovita Jovita 1 Strip .XX TID Metformin (Metformin HCl) 500 Mg Tab 500 Mg PO BIDPC With meals Losartan (Losartan Potassium) 50 Mg Tab 50 Mg PO DAILY Bd Lancet Ultrafine 33G (Lancets) 1 Mis Mis Box INJ Xanax (Alprazolam) 0.5 Mg Tab 0.5 Mg PO QID PRN Wheelchair (Device) 1 Mis Mis 1 Ea .ROUTE DIRECTED Walker/Folding Hernando (Device) 1 Mis Mis 1 Ea .ROUTE DIRECTED Effexor XR 24 HR (Venlafaxine HCl) 150 Mg Cap 150 Mg PO DAILY Plavix (Clopidogrel Bisulfate) 75 Mg Tab 75 Mg PO DAILY Lantus Inj (Insulin Glargine) 100 Unit/Ml Inj 10 Units SQ/IV HS Review of Systems Except as stated in HPI: all other systems reviewed are Neg Physical Exam Narrative GENERAL: Frail 61-year-old man, decreased skin turgor, weak. SKIN: Focused skin assessment warm/dry. HEAD: Atraumatic. Normocephalic. EYES: Pupils equal and round. No scleral icterus. No injection or drainage. ENT: No nasal bleeding or discharge. Mucous membranes pink and moist. NECK: Trachea midline. No JVD. CARDIOVASCULAR: Regular rate and rhythm. No murmur appreciated. RESPIRATORY: No accessory muscle use. Clear to auscultation. Breath sounds equal bilaterally. GASTROINTESTINAL: Abdomen soft, non-tender, nondistended. Hepatic and splenic margins not palpable. MUSCULOSKELETAL: No obvious deformities. No edema. NEUROLOGICAL: Awake and alert. No obvious cranial nerve deficits. Some generalized weakness. Normal speech. Data Data Last Documented VS Vital Signs Date Time Temp Pulse Resp B/P Pulse Ox O2 Delivery O2 Flow Rate FiO2 01/09/17 17:09 80 20 180/85 98 Nasal Cannula 2 01/09/17 14:30 97.7 Orders Complete Blood Count With Diff (01/09/17 14:35) Comprehensive Metabolic Panel (01/09/17 14:35) Creatine Kinase (Cpk) (01/09/17 14:35) Troponin I (01/09/17 14:35) Iv Access Insert/Monitor (01/09/17 14:35) Ct Brain W/O Iv Contrast(Rout) (01/09/17 ) Chest, Single Ap (01/09/17 ) Cath For Specimen (01/09/17 14:35) Sodium Chlor 0.9% 1000 Ml Inj (Ns 1000 M (01/09/17 14:45) Sodium Chlor 0.9% 1000 Ml Inj (Ns 1000 M (01/09/17 14:45) CKMB (01/09/17 14:50) CKMB% (01/09/17 14:50) Electrocardiogram (01/09/17 14:28) Urinalysis - C+S If Indicated (01/09/17 16:42) Admit To Inpatient (01/09/17 ) Code Status (01/09/17 17:06) Vital Signs (Adult) KARMEN.Q4H (01/09/17 17:06) Neuro Checks . ORDERED (01/09/17 17:06) Activity Bed Rest (01/09/17 17:06) Tire Specialist / Telemetry KARMEN.Q8H (01/09/17 17:06) Intake + Output 06,14,22 (01/09/17 17:06) Notify Dr: Other (01/09/17 17:06) Diet Regular Basic (01/09/17 Dinner) Resp Oxygen Lior C Titrat 1-4 L (01/09/17 ) Sodium Chlor 0.9% 1000 Ml Inj (Ns 1000 M (01/09/17 17:06) Sodium Chloride 0.9% Flush (Ns Flush) (01/09/17 17:15) Sodium Chloride 0.9% Flush (Ns Flush) (01/09/17 21:00) Inpatient Certification (01/09/17 ) Admit Order (Ed Use Only) (01/09/17 ) Labs Laboratory Tests Test 01/09/17 01/09/17 14:50 17:00 White Blood Count 11.1 TH/MM3 Red Blood Count 4.66 MIL/MM3 Hemoglobin 14.3 GM/DL Hematocrit 41.6 % Mean Corpuscular Volume 89.4 FL Mean Corpuscular Hemoglobin 30.6 PG Mean Corpuscular Hemoglobin 34.2 % Concent Red Cell Distribution Width 15.3 % Platelet Count 236 TH/MM3 Mean Platelet Volume 7.9 FL Neutrophils (%) (Auto) 69.0 % Lymphocytes (%) (Auto) 19.5 % Monocytes (%) (Auto) 7.8 % Eosinophils (%) (Auto) 3.5 % Basophils (%) (Auto) 0.2 % Neutrophils # (Auto) 7.7 TH/MM3 Lymphocytes # (Auto) 2.2 TH/MM3 Monocytes # (Auto) 0.9 TH/MM3 Eosinophils # (Auto) 0.4 TH/MM3 Basophils # (Auto) 0.0 TH/MM3 CBC Comment DIFF FINAL Differential Comment Sodium Level 136 MEQ/L Potassium Level 3.7 MEQ/L Chloride Level 106 MEQ/L Carbon Dioxide Level 20.0 MEQ/L Anion Gap 10 MEQ/L Blood Urea Nitrogen 13 MG/DL Creatinine 0.93 MG/DL Estimat Glomerular Filtration 82 ML/MIN Rate Random Glucose 75 MG/DL Calcium Level 9.0 MG/DL Total Bilirubin 0.4 MG/DL Aspartate Amino Transf 26 U/L (AST/SGOT) Alanine Aminotransferase 23 U/L (ALT/SGPT) Alkaline Phosphatase 105 U/L Total Creatine Kinase 344 U/L Creatine Kinase MB 4.3 NG/ML Creatine Kinase MB % 1.3 % Troponin I LESS THAN 0.02 NG/ML Total Protein 7.8 GM/DL Albumin 3.6 GM/DL Urine Color YELLOW Urine Turbidity CLEAR Urine pH 5.5 Urine Specific [place] 1.016 Urine Protein TRACE mg/dL Urine Glucose (UA) NEG mg/dL Urine Ketones 10 mg/dL Urine Occult Blood NEG Urine Nitrite NEG Urine Bilirubin NEG Urine Urobilinogen LESS THAN 2.0 MG/DL Urine Leukocyte Esterase NEG Urine RBC 1 /hpf Urine WBC 1 /hpf Urine Bacteria RARE /hpf Microscopic Urinalysis Comment CULT NOT INDICATED MDM Medical Decision Making Medical Screen Exam Complete: Yes Emergency Medical Condition: Yes Interpretation(s) My review of EKG: Normal sinus rhythm at a rate of 79, normal axis, normal intervals, no acute ischemia. LABS: CBC is unremarkable. CMP unremarkable. Troponin negative. Differential Diagnosis Rhabdomyolysis, generalized weakness, CVA, other Narrative Course Medical decision-making 61-year-old who presents to the emergency Department with generalized weakness, found on the ground by family, unable to walk, evidence of dehydration, possible stroke, no clear focal deficits. CT head and labs otherwise unremarkable. We'll plan on admission for MRI and further evaluation. Diagnosis Primary Impression: Generalized weakness Additional Impression: Dehydration Yobani Arenas MD Jan 09, 2017 16:56
[2017-01-09] MEDS ORDERED: SODIUM CHLOR 0.9% 1000 ML INJ 1,000 ML IV SCH (17:06)
[2017-01-09 17:09] VITALS: BP 180/85; PULSE 80; RESP 20; O2SAT 98
[2017-01-09] MEDS ORDERED: SODIUM CHLORIDE 0.9% FLUSH 10 ML FLUSH IV FLUSH PRN (17:15)
[2017-01-09 17:34] LABS: BACTERIA, URINE RARE /hpf; BLOOD, URINE NEG (NEG); COMMENT (UR) CULT NOT INDICATED; CULTURE IF INDICATED CULT NOT INDICATED; GLUCOSE,URINE NEG (NEG); KETONE, URINE 10 mg/dL (NEG); NITRITE,URINE NEG (NEG); PH, URINE 5.5 (5.0-8.5); URINE COLOR YELLOW (YELLW/STRAW)
[2017-01-09 18:38] VITALS: BP 178/80; PULSE 76; RESP 20; O2SAT 98
[2017-01-09 19:52] VITALS: BP 216/93
[2017-01-09 19:53] VITALS: BP 192/86; PULSE 91; RESP 22; TEMP 99
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
[2017-01-09] MEDS ORDERED: ALPRAZolam 0.5 MG TAB PO PRN (20:30)
[2017-01-09] MEDS ORDERED: ENALAPRILAT 1.25 MG/ML VIAL IV PRN (20:30)
[2017-01-09] MEDS ORDERED: SODIUM CHLORIDE 0.9% FLUSH 5 ML FLUSH IV FLUSH PRN (20:30)
[2017-01-09] MEDS ORDERED: GLUCAGON 1 MG/ML VIAL OTHER PRN (20:30)
[2017-01-09] MEDS ORDERED: DEXTROSE 50% IN WATER 50 ML VIAL(D50) IV PUSH PRN (20:30)
[2017-01-09] MEDS: hydrALAZINE HCL 50 MG TAB PO SCH (20:58)
[2017-01-09] MEDS ORDERED: PRAVASTATIN SOD 40 MG TAB PO SCH (21:00)
[2017-01-09] MEDS: ATORVASTATIN 10 MG TAB PO SCH (21:00)
[2017-01-09] MEDS: SODIUM CHLORIDE 0.9% FLUSH 10 ML FLUSH IV FLUSH SCH (21:00)
[2017-01-09] MEDS: ASPIRIN 300 MG SUPP RECTAL ONE (21:00)
[2017-01-09] MEDS ORDERED: SODIUM CHLORIDE 0.9% FLUSH 5 ML FLUSH IV FLUSH SCH (21:00)
[2017-01-09] MEDS: INSULIN ASPART SUPPLEMENTAL SCALE SQ SCH (21:00)
[2017-01-09] MEDS: SODIUM CHLOR 0.9% 1000 ML INJ 1,000 ML IV SCH (21:03)
[2017-01-09 21:11] VITALS: PULSE 89
--- NOTE | 2017-01-09 22:28 | RADRPT ---
EXAM DATE/TIME: 01/09/2017 21:16 [facility] COMPARISON: US CAROTID ARTERIES, April 30, 2016, 21:02. INDICATIONS : Cerebrovascular accident. MEDICAL HISTORY : Hypercholesterolemia. Hypertension. Chronic obstructive pulmonary disease. Transient ischemic attack. Parkinson's disease. anticoagulant therapy, plavix. emphysema. pneumonia. sleep apnea. diverticuliti s. arthritis. herniated disk. diabetes. ptsd. bipolar disorder. depression. anxiety. measles. blood t ransfusion. SURGICAL HISTORY : Brain surgery. Arterial stents. Left knee surgery. Right arm surgery. ENCOUNTER: Subsequent ACUITY: 1 day PAIN SCORE: 2/10 LOCATION: Bilateral neck PEAK SYSTOLIC VELOCITIES (cm/sec): ICA/CCA RATIO: Right: 0.8 Left: 0.7 ICA: Right: 105 Left: 89 CCA: Right: 131 Left: 134 ECA: Right: 119 Left: 104 VERTEBRAL: Right: 77 antegrade Left: 74 antegrade Elevated flow velocities and ICA/CCA ratios have been found to correlate with increased degrees of vessel stenosis, calculated as percentage of diameter relative to a normal segment of distal ICA/CCA FINDINGS: RIGHT CAROTID: Mild plaque seen in the bulb and proximal internal carotid artery. LEFT CAROTID: Mild plaque seen of the bulb and proximal internal carotid artery. VERTEBRAL ARTERIES: Antegrade flow is seen in both vertebral arteries. MISCELLANEOUS: None. CONCLUSION: Mild atherosclerotic plaque of both carotid bifurcations. No hemodynamically significant narrowing. Ezequiel Mcnair MD on January 09, 2017 at 22:25 Board Certified Radiologist. This report was verified electronically.
--- NOTE | 2017-01-09 23:32 | RADRPT ---
EXAM DATE/TIME: 01/09/2017 22:39 [facility] COMPARISON: CT BRAIN W/O CONTRAST, January 09, 2017, 15:31. MRI BRAIN W/O CONTRAST, April 30, 2016, 16:44. INDICATIONS : CVA. Pain and forehead abrasion after fall. MEDICAL HISTORY : Hypertension. Parkinson's. TBI. Diabetes. SURGICAL HISTORY : Craniotomy. Left knee. Right arm. ENCOUNTER: Subsequent ACUITY: 1 day PAIN SCORE: 5/10 LOCATION: cranial TECHNIQUE: Multiplanar, multisequence MRI of the brain was performed without contrast. Rapid acquisition sequen macy were performed. FINDINGS: CEREBRUM: The ventricles are normal for age. No evidence of midline shift, mass lesion, hemorrhage or acute in farction. No extraaxial fluid collections are seen. No evidence of blood products on the gradient e cho sequence. The pituitary gland and suprasellar cistern are normal in configuration. WHITE MATTER: No significant signal abnormalities are seen in the white matter. POSTERIOR FOSSA: The cerebellum and brainstem are intact. The 4th ventricle is midline. The cerebellopontine angle is unremarkable. The cerebellar tonsils are normal in position. DIFFUSION IMAGING: No focal areas of restricted diffusion are seen. No evidence of acute infarction. EXTRACRANIAL: There is opacification of the left frontal sinus and mild mucosal thickening in the anterior ethmoids and right frontal sinus. CONCLUSION: 1. No acute findings in the brain. 2. Opacified left frontal sinus and mild sinus disease in the right frontal and ethmoids. Larry Vigil MD on January 09, 2017 at 23:26 Board Certified Radiologist. This report was verified electronically.
--- NOTE | 2017-01-09 23:40 | RADRPT ---
EXAM DATE/TIME: 01/09/2017 22:39 [place] COMPARISON: No previous studies available for comparison. INDICATIONS : CVA. Pain and forehead abrasion after fall. MEDICAL HISTORY : Hypertension. Parkinson's. TBI. Diabetes. SURGICAL HISTORY : Craniotomy. Left knee. Right arm. ENCOUNTER: Subsequent ACUITY: 1 day PAIN SCORE: 5/10 LOCATION: cranial Please note a normal MRA of the brain does not entirely exclude the possibility of a small aneurysm, nor the possibility of distal intracranial vessel disease. TECHNIQUE: 3D time of flight MRA was performed. Source images, multiplanar STS MIP, and 3D volume MIP reconstru ctions were reviewed. FINDINGS: There is excellent visualization of the major intracranial arteries out to the second-order branch ve ssels. There is no evidence for aneurysm, vessel truncation or stenosis, and no evidence for vascula r malformation. Intact flow in the anterior communicating artery. No flow is seen in either PCOM. CONCLUSION: Negative MRA of the [place]. Larry Vigil MD on January 09, 2017 at 23:37 Board Certified Radiologist. This report was verified electronically.
[2017-01-10] VITALS (14 sets, daily range): BP systolic 106–169; BP diastolic 56–75; PULSE 74–103; RESP 17–21; TEMP 96.5–98.9; O2SAT 92–96
--- NOTE | 2017-01-10 00:12 | EKG ---
Date Performed: 01/09/2017 Time Performed: 22:21:22 PTAGE: 61 years EKG: Sinus rhythm BASELINE ARTIFACT NORMAL ECG PREVIOUS TRACING : 01/09/2017 14.28 Compared to prior tracing no significant change DOCTOR: Ramy Hargrove Interpretating Date/Time 01/10/2017 00:12:04
[2017-01-10] MEDS: ENOXAPARIN SODIUM 40 MG/0.4 ML SYRINGE SQ SCH ×2 (00:26→19:40)
[2017-01-10 00:45] LABS: CREATINE KINASE 192 U/L (39-308)
[2017-01-10] MEDS ORDERED: MORPHINE SULFATE 4 MG/ML INJ IV ONE (00:45)
[2017-01-10 01:03] LABS: CKMB 2.7 NG/ML (0.5-3.6)
[2017-01-10] MEDS ORDERED: ACETAMINOPHEN/HYDROcodone 325 MG/5 MG TAB PO PRN (01:15)
[2017-01-10] MEDS ORDERED: MORPHINE SULFATE 4 MG/ML INJ IV PRN (01:15)
[2017-01-10] MEDS ORDERED: ACETAMINOPHEN 325 MG TAB PO PRN (01:15)
[2017-01-10] MEDS ORDERED: NALOXONE HCL 0.4 MG/ML AMP IV PRN (01:15)
[2017-01-10] MEDS: INSULIN ASPART SUPPLEMENTAL SCALE SQ SCH ×4 (06:31→21:24)
[2017-01-10 06:41] LABS: AUTOMATED NEUTROPHIL # 8.4 TH/MM3 (1.8-7.7); BASOPHIL % 0.1 % (0.0-2.0); EOSINOPHIL # 0.1 TH/MM3 (0-0.4); HEMATOCRIT 42.5 % (39.0-51.0); HEMO FLAGS DIFF FINAL; LYMPH % 11.6 % (9.0-44.0); LYMPHOCYTE # 1.2 TH/MM3 (1.0-4.8); MEAN CELL VOLUME 90.3 FL (80.0-100.0); MEAN CORPUSCULAR HEMOGLOBIN 30.4 PG (27.0-34.0); MEAN CORPUSCULAR HGB CONC 33.7 % (32.0-36.0); MONO % 7.3 % (0.0-8.0); PLATELET COUNT 236 TH/MM3 (150-450); RED CELL DISTRIBUTION WIDTH 15.2 % (11.6-17.2); WHITE BLOOD COUNT 10.5 TH/MM3 (4.0-11.0)
[2017-01-10 06:53] LABS: ANION GAP 11 MEQ/L (5-15); BICARBONATE 19.9 MEQ/L (21.0-32.0); BLOOD UREA NITROGEN 9 MG/DL (7-18); CHLORIDE 108 MEQ/L (98-107); GLOMERULAR FILTRATION RATE 97 ML/MIN (>89); POTASSIUM 3.8 MEQ/L (3.5-5.1); SODIUM (NA) 139 MEQ/L (136-145)
[2017-01-10 07:01] LABS: CREATINE KINASE 158 U/L (39-308)
[2017-01-10] MEDS ORDERED: ASPIRIN 300 MG SUPP RECTAL SCH (09:00)
[2017-01-10] MEDS: CLOPIDOGREL 75 MG TAB PO SCH (09:38)
[2017-01-10] MEDS: hydrALAZINE HCL 50 MG TAB PO SCH ×2 (09:38→19:41)
[2017-01-10] MEDS: VENLAFAXINE HCL XR 75 MG CAP PO SCH (09:38)
[2017-01-10] MEDS: ASPIRIN 325 MG TAB PO SCH (09:38)
[2017-01-10] MEDS: LOSARTAN 50 MG TAB PO SCH (09:38)
[2017-01-10] MEDS: SODIUM CHLORIDE 0.9% FLUSH 10 ML FLUSH IV FLUSH SCH ×2 (09:39→19:41)
[2017-01-10] MEDS: SODIUM CHLOR 0.9% 1000 ML INJ 1,000 ML IV SCH ×2 (10:35→23:51)
--- NOTE | 2017-01-10 11:19 | HHI.FPPN ---
Subjective Remarks Patient more alert -- alert and oriented to place, year, and president. Reports persistent weakness and dry mouth. Had black diarrhea 4 days ago. Thinks his parkinsons is getting worse. No new chest pain or numbness and tingling on one side of his body. (Carlos Jean-Baptiste MD, R3) Objective Vitals Vital Signs Date Time Temp Pulse Resp B/P Pulse Ox O2 Delivery O2 Flow Rate FiO2 01/10/17 07:30 96.5 103 20 169/75 96 01/10/17 04:03 101 01/10/17 04:00 98.9 102 20 141/65 93 01/10/17 01:50 102 01/10/17 00:00 97.9 97 21 141/67 93 01/09/17 21:11 89 01/09/17 19:53 99.0 91 22 192/86 01/09/17 19:52 216/93 01/09/17 18:38 76 20 178/80 98 Nasal Cannula 2 01/09/17 17:09 80 20 180/85 98 Nasal Cannula 2 01/09/17 14:30 97.7 72 20 171/77 96 I/O 01/09/17 01/09/17 01/09/17 01/10/17 01/10/17 01/10/17 07:00 15:00 23:00 07:00 15:00 23:00 Intake Total 0 ml Output Total 375 ml 0 ml Balance -375 ml 0 ml Intake Oral 0 ml Output Urine Total 375 ml 0 ml # Voids 1 (Carlos Jean-Baptiste MD, R3) Result Diagram: 01/10/17 0602 01/10/17 0602 Imaging Last 72 hours Impressions Brain MRI 01/09/175 Signed Impressions: Service Date/Time: Monday, January 09, 2017 22:39 - CONCLUSION: 1. No acute findings in the brain. 2. Opacified left frontal sinus and mild sinus disease in the right frontal and ethmoids. Larry Vigil MD Head Magnetic Resonance Angiography 01/09/17 0000 Signed Impressions: Service Date/Time: Monday, January 09, 2017 22:39 - CONCLUSION: Negative MRA of the [place]. Larry Vigil MD Head CT 01/09/17 0000 Signed Impressions: Service Date/Time: Monday, January 09, 2017 15:31 - CONCLUSION: 1. No intracranial abnormality seen. 2. Suspected right occipital scalp hematoma. 3. Left frontal and to a lesser degree, right frontal sinus disease. Ezequiel Adamson MD Chest X-Ray 01/09/17 0000 Signed Impressions: Service Date/Time: Monday, January 09, 2017 15:40 - CONCLUSION: 1. No acute cardiopulmonary findings. Stable examination compared to previous dated . Vicente Ryder MD Carotid Artery Ultrasound 01/09/17 0000 Signed Impressions: Service Date/Time: Monday, January 09, 2017 21:16 - CONCLUSION: Mild atherosclerotic plaque of both carotid bifurcations. No hemodynamically significant narrowing. Ezequiel Mcnair MD (Carlos Jean-Baptiste MD, R3) A/P Assessment and Plan 61-year-old man with a h/o diabetes, hypertension, untreated DONYA, Parkinson's disease presented to the emergency department after being found down with generalized weakness and dysarthria. Will admit patient for CVA and ACS rule out. (Carlos Jean-Baptiste MD, R3) Attending Attestation Patient seen and examined Case reviewed and discussed Agree with plan of care as discussed with me and documented in the resident note. (Rosina Marcos MD) Problem List: (1) Generalized weakness Status: Acute Plan: Likely related to worsening parkinson's disease as well as dehydration. Appreciate neuro eval and recommendations. MRI brain, MRA neck, CT head, and CXR were within normal limits. Continue with physical therapy and OT. May need SNF upon d/c. Check Vit B12 and folate. (2) Dysarthria Status: Acute Plan: At baseline per patient. Speech therapy eval. (3) Diabetes mellitus, type 2 Status: Acute Plan: Low-dose sliding scale insulin Hold patient's home medications (4) HTN (hypertension) Status: Chronic Plan: Continue patient's home medications (5) Anxiety and depression Status: Acute Plan: Continue patient's home medication of Effexor by mouth daily Continue patient's home Xanax when necessary for anxiety (6) FEN ppx Status: Acute Plan: Fluids: Gentle fluid hydration with normal saline IV at 70 mL per hour Electrolytes: Monitor and replete as necessary Nutrition: Nothing by mouth until speech therapy evaluation DVT prophylaxis: Lovenox GI prophylaxis: Not indicated (Carlos Jean-Baptiste MD, R3) Carlos Jean-Baptiste MD, R3 Jan 10, 2017 11:19 Rosina Marcos MD Jan 10, 2017 21:45
--- NOTE | 2017-01-10 14:43 | EKG ---
Date Performed: 01/10/2017 Time Performed: 08:49:03 PTAGE: 61 years EKG: SINUS TACHYCARDIA ABNORMAL RHYTHM ECG PREVIOUS TRACING : 01/09/2017 22.21 Compared to prior tracing no significant change DOCTOR: Ramy Hargrove Interpretating Date/Time 01/10/2017 14:43:03
[2017-01-10 14:56] LABS: CREATINE KINASE 206 U/L (39-308)
[2017-01-10 15:08] LABS: CKMB 1.3 NG/ML (0.5-3.6)
[2017-01-10] MEDS: predniSONE 20 MG TAB PO SCH (15:26)
[2017-01-10] MEDS: ACETAMINOPHEN/HYDROcodone 325 MG/10 MG TAB PO PRN ×3 (15:26→23:51)
[2017-01-10] MEDS: RESP: ALBUTEROL 2.5 MG/IPRATROPIUM 0.5 MG NEB (SCH) NEB ×2 (15:35→20:53)
[2017-01-10 16:10] LABS: HEMOGLOBIN A1a 1.4 %; HEMOGLOBIN A1b 2.1 %; HEMOGLOBIN LA1C 1.5 %; HEMOGLOBIN P3 3.9 %
[2017-01-10 17:47] LABS: BLOOD GAS BASE EXCESS -5.7 mmol/L (-2-2); BLOOD GAS CARBOXYHEMOGLOBIN 1.4 % (0-4); BLOOD GAS HCO3 19 mmol/L (22-26); BLOOD GAS METHEMOGLOBIN 1.5 % (0-2); BLOOD GAS O2 HGB SATURATION 90 % (90-100); BLOOD GAS OXYGEN CONTENT 15.4 Vol % (12.0-20.0); BLOOD GAS PCO2 33 mmHg (38-42); BLOOD GAS PO2 66 mmHg (61-120); BLOOD GAS TOTAL HGB 12.1 G/DL (12.0-16.0); CRITICAL VALUE NO; DRAW SITE LT RADIAL; FIO2 21 %; NUMBER OF ARTERIAL PUNCTURES 1; STAT NO; TEMP CORR TO 98.6; ULNAR PULSE PRESENT
[2017-01-10] MEDS: ATORVASTATIN 10 MG TAB PO SCH (19:41)
--- NOTE | 2017-01-10 23:29 | MB ---
cc: SKYLER WHALEN DATE OF CONSULTATION 01/10/17 REASON FOR CONSULTATION Mental status change. HISTORY OF PRESENT ILLNESS Mr. Jay is a 61-year-old male with history of Parkinson's disease. He states he developed generalized weakness, lightheadedness, fell to the floor. His family found him on the floor. He had some slurred speech. He states he did not lose consciousness, did not have any seizure activity. No focal deficits. PERSONAL HISTORY History of TIA in 2003. Hypertension, sleep apnea, Parkinson's disease, panic disorder. MEDICATIONS At home: 1. Hydralazine. 2. Aspirin. 3. Metformin. 4. Losartan. 5. Xanax. 6. Effexor. 7. Plavix. 8. Lantus insulin. ALLERGIES None known. SOCIAL HISTORY He does smoke. He has a history of alcohol abuse in the past, none recently, however. NEUROLOGIC EXAMINATION VITAL SIGNS: Blood pressure 122/56, pulse 82, respirations 17, temperature 96.7 degrees. NEURO: Higher cortical function he is alert, oriented x3. Speech is normal. Cranial nerves intact. Motor exam he has got generalized weakness at 4/5, mild cogwheeling, mild tremors in both upper extremities. Reflexes are symmetric. IMAGING STUDIES MRI of the brain no acute changes present. He had a carotid ultrasound showing mild atherosclerosis but no significant stenosis. MRA of the brain is normal. LABORATORY DATA White count 10,500, hemoglobin 14 with hematocrit 42%, platelet count 236,000. Sodium is 139, potassium 3.8, chloride 108, BUN is 9, creatinine 0.81, GFR is 97, glucose is 77. IMPRESSION Possible syncope related to orthostatic hypotension, possibly related to Parkinson's. RECOMMENDATIONS Recommend EEG, also check orthostatic blood pressure and pulse. MD BRENNAN Manrique/ROBINA /9:29 PM /11:20 PM
[2017-01-11] VITALS (10 sets, daily range): BP systolic 127–162; BP diastolic 65–76; PULSE 67–104; RESP 17–20; TEMP 96.9–97.9; O2SAT 94–97
[2017-01-11] MEDS: RESP: ALBUTEROL 2.5 MG/IPRATROPIUM 0.5 MG NEB (SCH) NEB ×3 (04:21→16:12)
[2017-01-11] MEDS: ACETAMINOPHEN/HYDROcodone 325 MG/10 MG TAB PO PRN ×3 (05:13→15:04)
[2017-01-11] MEDS: INSULIN ASPART SUPPLEMENTAL SCALE SQ SCH ×2 (05:30→11:00)
--- NOTE | 2017-01-11 08:21 | HHI.FPPN ---
Subjective Remarks Patient feeling "great" Walking with assistance (PT) yesterday. Formed BMs without blood. Tolerating whole meals. Strength improving. No fevers chills or SOB. Orthostatic + > 20 mm Hg drop in systolic BP from supine to sitting. Saying his doctor said he can go home today. Saying he will leave AMA if he does not get to go home. (Carlos Jean-Baptiste MD, R3) Objective Vitals Vital Signs Date Time Temp Pulse Resp B/P Pulse Ox O2 Delivery O2 Flow Rate FiO2 01/11/17 05:40 97 Nasal Cannula 3.00 01/11/17 04:22 97 Nasal Cannula 3.00 01/11/17 04:00 97.1 67 17 127/67 96 01/11/17 04:00 69 01/11/17 00:08 75 01/10/17 22:38 97.1 85 18 134/61 94 106/60 118/60 01/10/17 20:53 94 Nasal Cannula 3.00 01/10/17 20:05 74 01/10/17 20:00 96.7 82 17 122/56 95 01/10/17 16:55 92 01/10/17 15:50 97.6 92 20 120/60 92 01/10/17 14:19 94 Nasal Cannula 2.50 01/10/17 11:30 98.9 98 20 113/56 94 01/10/17 10:00 101 I/O 01/10/17 01/10/17 01/10/17 01/11/17 01/11/17 01/11/17 06:59 14:59 22:59 06:59 14:59 22:59 Intake Total 0 ml 240 ml 240 ml Output Total 0 ml 300 ml 600 ml 550 ml Balance 0 ml -60 ml -600 ml -310 ml Intake Oral 0 ml 240 ml 240 ml Output Urine Total 0 ml 300 ml 600 ml 550 ml # Bowel Movements 0 (Carlos Jean-Baptiste MD, R3) Result Diagram: 01/10/1760101/10/17601 Imaging Last 72 hours Impressions Brain MRI 01/09/172154 Signed Impressions: Service Date/Time: Monday, January 09, 2017 22:39 - CONCLUSION: 1. No acute findings in the brain. 2. Opacified left frontal sinus and mild sinus disease in the right frontal and ethmoids. Larry Vigil MD Head Magnetic Resonance Angiography 01/09/17 0000 Signed Impressions: Service Date/Time: Monday, January 09, 2017 22:39 - CONCLUSION: Negative MRA of the [place]. Larry Vigil MD Head CT 01/09/17 0000 Signed Impressions: Service Date/Time: Monday, January 09, 2017 15:31 - CONCLUSION: 1. No intracranial abnormality seen. 2. Suspected right occipital scalp hematoma. 3. Left frontal and to a lesser degree, right frontal sinus disease. Ezequiel Adamson MD Chest X-Ray 01/09/17 0000 Signed Impressions: Service Date/Time: Monday, January 09, 2017 15:40 - CONCLUSION: 1. No acute cardiopulmonary findings. Stable examination compared to previous dated . Vicente Ryder MD Carotid Artery Ultrasound 01/09/17 0000 Signed Impressions: Service Date/Time: Monday, January 09, 2017 21:16 - CONCLUSION: Mild atherosclerotic plaque of both carotid bifurcations. No hemodynamically significant narrowing. Ezequiel Mcnair MD (Carlos Jean-Baptiste MD, R3) A/P Assessment and Plan 61-year-old man with a h/o diabetes, hypertension, untreated DONYA, Parkinson's disease presented to the emergency department after being found down with generalized weakness and dysarthria. Will admit patient for CVA and ACS rule out. (Carlos Jean-Baptiste MD, R3) Attending Attestation Patient seen and examined. Case reviewed and discussed with Dr. Jean-Baptiste Agree with plan of care as discussed with me and documented in the resident note. (Rosina Marcos MD) Problem List: (1) Generalized weakness Status: Acute Plan: Likely related to worsening parkinson's disease as well as dehydration. + Orthostatic vital signs. Encourage adequate hydration. Slow to rise. Frequent meals. Compression stockings. Home health with PT / OT. Appreciate neuro eval and recommendations. MRI brain, MRA neck, CT head, and CXR were within normal limits. ECHO pending. Continue with physical therapy and OT. Recommend home health upon discharge. Check Vit B12 and folate. (2) Orthostatic hypotension due to Parkinson's disease Status: Acute Plan: As above. Patient currently not taking anti-parkinsonian medications. PT / OT upon discharge. (3) Dysarthria Status: Acute Plan: At baseline per patient. Speech therapy eval. (4) Diabetes mellitus, type 2 Status: Acute Plan: Low-dose sliding scale insulin; has required 4 units x 24 hours. Hold patient's home medications - Hg A1c = 6.3 (5) HTN (hypertension) Status: Chronic Plan: Continue patient's home medications -BP at goal. (6) Anxiety and depression Status: Acute Plan: Continue patient's home medication of Effexor by mouth daily Continue patient's home Xanax when necessary for anxiety (7) FEN ppx Status: Acute Plan: Fluids: D/c IVF Electrolytes: Monitor and replete as necessary Nutrition: Tolerating full meals. DVT prophylaxis: Lovenox q 24 GI prophylaxis: Not indicated wdw Dr. Marcos. (Carlos Jean-Baptiste MD, R3) Carlos Jean-Baptiste MD, R3 Jan 11, 2017 08:21 Rosina Marcos MD Jan 15, 2017 09:51
[2017-01-11] MEDS: LOSARTAN 50 MG TAB PO SCH (08:53)
[2017-01-11] MEDS: CLOPIDOGREL 75 MG TAB PO SCH (08:53)
[2017-01-11] MEDS: VENLAFAXINE HCL XR 75 MG CAP PO SCH (08:53)
[2017-01-11] MEDS: hydrALAZINE HCL 50 MG TAB PO SCH (08:53)
[2017-01-11] MEDS: ASPIRIN 325 MG TAB PO SCH (08:53)
[2017-01-11] MEDS: predniSONE 20 MG TAB PO SCH (08:53)
[2017-01-11] MEDS: SODIUM CHLORIDE 0.9% FLUSH 10 ML FLUSH IV FLUSH SCH (08:54)
--- NOTE | 2017-01-11 08:57 | EKG ---
Date Performed: 01/09/2017 Time Performed: 14:28:04 PTAGE: 61 years EKG: Sinus rhythm NORMAL ECG Compared to the PREVIOUS TRACING from 06/27/16, no significant change DOCTOR: Ramy Hargrove Interpretating Date/Time 01/11/2017 08:53:45
[2017-01-11 14:01] LABS: AUTOMATED NEUTROPHIL # 6.1 TH/MM3 (1.8-7.7); BASOPHIL % 0.2 % (0.0-2.0); EOSINOPHIL # 0.1 TH/MM3 (0-0.4); EOSINOPHIL % 0.8 % (0.0-4.0); HEMATOCRIT 36.5 % (39.0-51.0); HEMO FLAGS DIFF FINAL; LYMPH % 11.6 % (9.0-44.0); LYMPHOCYTE # 0.9 TH/MM3 (1.0-4.8); MEAN CELL VOLUME 89.7 FL (80.0-100.0); MEAN CORPUSCULAR HEMOGLOBIN 29.8 PG (27.0-34.0); MEAN CORPUSCULAR HGB CONC 33.2 % (32.0-36.0); MONO % 5.6 % (0.0-8.0); NEUT % 81.8 % (16.0-70.0); PLATELET COUNT 221 TH/MM3 (150-450); RED BLOOD COUNT 4.07 MIL/MM3 (4.50-5.90); RED CELL DISTRIBUTION WIDTH 15.6 % (11.6-17.2); WHITE BLOOD COUNT 7.4 TH/MM3 (4.0-11.0)
[2017-01-11] MEDS ORDERED: LIPI10TA PO (14:03)
--- NOTE | 2017-01-11 14:04 | HHI.DCPOC ---
Discharge Care Plan Diagnosis: (1) Orthostatic hypotension due to Parkinson's disease (2) Depression (3) Anxiety and depression (4) Diabetes mellitus, type 2 (5) Generalized weakness Goals to Promote Your Health * To prevent worsening of your condition and complications * To maintain your health at the optimal level Directions to Meet Your Goals Take your medications as prescribed Follow your dietary instruction Follow activity as directed Keep your appointments as scheduled Take your immunizations and boosters as scheduled If your symptoms worsen call your PCP, if no PCP go to Urgent Care Center or Emergency Room Smoking is Dangerous to Your Health. Avoid second hand smoke Call the 24-hour hour crisis hotline for domestic abuse at Carlos Jean-Baptiste MD, R3 Jan 11, 2017 14:04
--- NOTE | 2017-01-11 14:06 | HHI.DS ---
Discharge Summary Admission Date Jan 09, 2017 at 17:41 Admitting Diagnosis Weakness, Gait instability (1) Generalized weakness Plan: Likely related to worsening parkinson's disease as well as dehydration. + Orthostatic vital signs. Encourage adequate hydration. Slow to rise. Frequent meals. Compression stockings. Home health with PT / OT. Appreciate neuro eval and recommendations. MRI brain, MRA neck, CT head, and CXR were within normal limits. ECHO pending. Continue with physical therapy and OT. Recommend home health upon discharge. Check Vit B12 and folate. (2) Orthostatic hypotension due to Parkinson's disease Plan: As above. Patient currently not taking anti-parkinsonian medications. PT / OT upon discharge. (3) Dysarthria Plan: At baseline per patient. Speech therapy eval. (4) Diabetes mellitus, type 2 Plan: Low-dose sliding scale insulin; has required 4 units x 24 hours. Hold patient's home medications - Hg A1c = 6.3 (5) HTN (hypertension) Plan: Continue patient's home medications -BP at goal. (6) Anxiety and depression Plan: Continue patient's home medication of Effexor by mouth daily Continue patient's home Xanax when necessary for anxiety (7) FEN ppx Plan: Fluids: D/c IVF Electrolytes: Monitor and replete as necessary Nutrition: Tolerating full meals. DVT prophylaxis: Lovenox q 24 GI prophylaxis: Not indicated wdw Dr. Marcos. Brief History 61-year-old man with a h/o diabetes, hypertension, untreated DONYA, Parkinson's disease presented to the emergency department after being found down. History is from the ED physician because patient is unable to provide any history. He was found on the floor by family. He has generalized weakness. Does not know how long he was down there, but he couldn't have been there more than a day because his family saw him the day before. Feeling like he had some slurred speech as well. He states sometimes he gets a little bit unsteady from the Parkinson's. Denies any other recent illness or injury. Incontinent of stool and urine. Called Dr. Arshad to see what this patient's baseline is like. Apparently, the patient can talk coherently and move his arms at baseline. CBC/BMP: 01/10/17 0602 01/10/17 0602 Significant Findings Laboratory Tests Test 01/09/17 01/09/17 01/09/17 01/10/17 14:50 17:00 23:49 06:02 White Blood Count 11.1 TH/MM3 (4.0-11.0) Carbon Dioxide Level 20.0 MEQ/L 19.9 MEQ/L (21.0-32.0) (21.0-32.0) Estimat Glomerular Filtration 82 ML/MIN (>89) Rate Total Creatine Kinase 344 U/L (39-308) Creatine Kinase MB 4.3 NG/ML (0.5-3.6) Troponin I LESS THAN 0.02 LESS THAN 0.02 LESS THAN 0.02 NG/ML NG/ML NG/ML (0.02-0.05) (0.02-0.05) (0.02-0.05) Hemoglobin A1c 6.3 % (4.3-6.0) Urine Ketones 10 mg/dL (NEG) Urine Bacteria RARE /hpf (NONE) Neutrophils (%) (Auto) 80.0 % (16.0-70.0) Neutrophils # (Auto) 8.4 TH/MM3 (1.8-7.7) Chloride Level 108 MEQ/L (98-107) Calcium Level 8.1 MG/DL (8.5-10.1) Cholesterol Level 88 MG/DL (120-200) HDL Cholesterol 39.0 MG/DL (40.0-60.0) Test 01/10/17 01/10/17 14:15 17:37 Troponin I LESS THAN 0.02 NG/ML (0.02-0.05) Blood Gas HCO3 19 mmol/L (22-26) Blood Gas Base Excess -5.7 mmol/L (-2-2) Arterial Blood pH 7.37 (7.380-7.420) Arterial Blood Partial 33 mmHg (38-42) Pressure CO2 Hospital Course Patient is a pleasant 61-year-old male, with a past medical history significant for anxiety/depression, coronary artery disease, high blood pressure, type 2 diabetes, and Parkinson's disease, presenting after being found down 24 hours by his family. At that time he had some altered mental status, and slurring of speech. He does report several falls over the past several weeks, and increased weakness in his lower extremities. A stroke workup in the hospital showed an MRI with no acute findings in the brain. A carotid ultrasound showed no hemodynamically significant narrowing. A chest x-ray showed no acute cardiopulmonary findings. A brain MRA also showed no significant stenosis of the [place]. Orthostatic vital signs were significant for a greater than 20 mmHg drop when going from supine to sitting positions. Neurology was consulted, and thought the patient's symptoms were related to worsening of his Parkinson's, versus syncope related to orthostatic hypotension. He recommended getting an EEG. This showed a normal awake and sleep EEG. In review of the patient's laboratory, he did have a slight drop in hemoglobin from 14.3-12.1. He was complaining of dark diarrhea week prior to admission. However, this resolved during his hospitalization. He has close follow-up with his PCP. He was discharged home in stable condition. Pt Condition on Discharge: Stable Discharge Disposition: Discharge Home Discharge Instructions DIET: Follow Instructions for: As Tolerated, No Restrictions Activities you can perform: Full Weight Bearing New Medications: Atorvastatin (Lipitor) 10 Mg Tab 10 MG PO HS, #90 TAB 0 Refills Continued Medications: Alprazolam (Xanax) 0.5 Mg Tab 0.5 MG PO QID PRN for ANXIETY, #120 TAB 2 Refills Clopidogrel (Plavix) 75 Mg Tab 75 MG PO DAILY for Blood Clot Prevention, #30 TAB 0 Refills Hydralazine HCl (Hydralazine HCl) 50 Mg Tablet 50 MG PO BID, #60 UNIT 3 Refills Insulin Glargine Inj (Lantus Inj) 100 Unit/Ml Inj 10 UNITS SQ/IV HS for diabetes, #30 VIAL Losartan (Losartan) 50 Mg Tab 50 MG PO DAILY for Blood Pressure Management, #90 TAB 3 Refills Metformin (Metformin) 500 Mg Tab 500 MG PO BIDPC for Blood Sugar Management, #60 TAB 5 Refills With meals Venlafaxine ER 24 HR (Effexor XR 24 HR) 150 Mg Cap 150 MG PO DAILY for health, #90 CAP 0 Refills Carlos Jean-Baptiste MD, R3 Jan 11, 2017 14:06
--- NOTE | 2017-01-11 14:09 | HHI.FF ---
Face to Face Verification Diagnosis: (1) Generalized weakness (2) Diabetes mellitus, type 2 (3) Orthostatic hypotension due to Parkinson's disease Physical Therapy Order: Evaluate and Treat, Improve ambulation, Strength and gait training Occupational Therapy Order: Evaluate and Treat, Improve ADL, Gross motor coordination, Fine motor coordination Speech Therapy Order: To Improve: Speech and communication skills, Swallowing Home Health Nursing Order: Medical education Signs/symptoms of disease process Diabetic education Nursing assessment with vital signs I have seen patient Danie Jay on 01/11/17. My clinical findings support the need for the requested home health care services because: Ltd mobility - disease progression Limited ability to care for self High risk of falls I certify that my clinical findings support that this patient is homebound because: Unsteady gait/balance Unsafe to leave home unassisted Carlos Jean-Baptiste MD, R3 Jan 11, 2017 14:09
[2017-01-11 14:25] LABS: BICARBONATE 24.4 MEQ/L (21.0-32.0); POTASSIUM 3.9 MEQ/L (3.5-5.1)
--- NOTE | 2017-01-11 14:35 | HHI.PR ---
Review/Management Diagnosis presyncope--orhtostatic hypotension. Plan f/u eeg. Diagnosis/Plan: Subjective Subjective Comments No acute events reported Active Medications Current Medications Medications (Trade) Dose Ordered Sig/[place] Route Start Time Stop Time Status Last Admin (NS Flush) 2 ml UNSCH PRN IV FLUSH 01/09/17 17:15 Sodium Chloride 2 ml 2 ml BID IV FLUSH 01/09/17 21:00 01/11/17 08:54 (NS 1000 ml Inj) 1,000 ml @ 70 mls/hr [id number] IV 01/09/17 20:17 01/10/17 23:51 (Vasotec Inj) 1.25 mg Q4H PRN IV 01/09/17 20:30 (Aspirin) 325 mg DAILY PO 01/10/17 09:00 01/11/17 08:53 (Lipitor) 10 mg HS PO 01/09/17 21:00 01/10/17 19:41 (Plavix) 75 mg DAILY PO 01/10/17 09:00 01/11/17 08:53 (NovoLOG SUPPLEMENTAL SCALE) 1 ACHS SQ 01/09/17 21:00 01/11/17 11:00 (D50w (Vial) Inj) 50 ml UNSCH PRN IV PUSH 01/09/17 20:30 01/10/17 04:02 (Glucagon Inj) 1 mg UNSCH PRN OTHER 01/09/17 20:30 (Lovenox Inj) 40 mg Q24H SQ 01/09/17 21:00 01/10/17 19:40 (Xanax) 0.5 mg QID PRN PO 01/09/17 20:30 01/11/17 13:58 (Apresoline) 50 mg BID PO 01/09/17 21:00 01/11/17 08:53 (Cozaar) 50 mg DAILY PO 01/10/17 09:00 01/11/17 08:53 (Effexor Xr) 150 mg DAILY PO 01/10/17 09:00 01/11/17 08:53 (Tylenol) 650 mg Q6H PRN PO 01/10/17 01:15 ([place] 5-325 Mg) 1 tab Q4H PRN PO 01/10/17 01:15 01/10/17 09:40 ([place] 10-325 Mg) 1 tab Q4H PRN PO 01/10/17 01:15 01/11/17 10:34 (Narcan Inj) 0.4 mg UNSCH PRN IV 01/10/17 01:15 (Deltasone) 60 mg DAILY PO 01/10/17 13:30 01/11/17 08:53 Allergies Allergies Coded Allergies No Known Allergies (Verified01/09/17) Exam I&O / VS 01/10/17 01/10/17 01/11/17 15:00 23:00 07:00 Intake Total 240 ml 240 ml Output Total 300 ml 600 ml 550 ml Balance -60 ml -600 ml -310 ml Intake Oral 240 ml 240 ml Output Urine Total 300 ml 600 ml 550 ml # Bowel Movements 0 Vital Signs Date Time Temp Pulse Resp B/P Pulse Ox O2 Delivery O2 Flow Rate FiO2 01/11/17 11:35 95 21 01/11/17 11:30 97.6 78 20 135/76 96 01/11/17 10:15 104 01/11/17 07:30 97.9 73 20 136/65 95 01/11/17 05:40 97 Nasal Cannula 3.00 01/11/17 04:22 97 Nasal Cannula 3.00 01/11/17 04:00 97.1 67 17 127/67 96 01/11/17 04:00 69 01/11/17 00:08 75 01/10/17 22:38 97.1 85 18 134/61 94 106/60 118/60 01/10/17 20:53 94 Nasal Cannula 3.00 01/10/17 20:05 74 01/10/17 20:00 96.7 82 17 122/56 95 01/10/17 16:55 92 01/10/17 15:50 97.6 92 20 120/60 92 Exam Comments alert, speech normal CN 2-12 normal MOTOR--5/5 BUE and BLE Objective Micro and Labs Laboratory Tests Test 01/10/17 01/11/17 01/11/17 17:37 13:18 13:48 Blood Gas Puncture Site LT RADIAL Blood Gas Patient Temperature 98.6 Blood Gas HCO3 19 Blood Gas Base Excess -5.7 Blood Gas Oxygen Saturation 90 Arterial Blood pH 7.37 Arterial Blood Partial 33 Pressure CO2 Arterial Blood Partial 66 Pressure O2 Arterial Blood Oxygen Content 15.4 Arterial Blood 1.4 Carboxyhemoglobin Arterial Blood Methemoglobin 1.5 Blood Gas Hemoglobin 12.1 Blood Gas Inspired Oxygen 21 White Blood Count 7.4 Red Blood Count 4.07 Hemoglobin 12.1 Hematocrit 36.5 Mean Corpuscular Volume 89.7 Mean Corpuscular Hemoglobin 29.8 Mean Corpuscular Hemoglobin 33.2 Concent Red Cell Distribution Width 15.6 Platelet Count 221 Mean Platelet Volume 7.0 Neutrophils (%) (Auto) 81.8 Lymphocytes (%) (Auto) 11.6 Monocytes (%) (Auto) 5.6 Eosinophils (%) (Auto) 0.8 Basophils (%) (Auto) 0.2 Neutrophils # (Auto) 6.1 Lymphocytes # (Auto) 0.9 Monocytes # (Auto) 0.4 Eosinophils # (Auto) 0.1 Basophils # (Auto) 0.0 CBC Comment DIFF FINAL Differential Comment Sodium Level 135 Potassium Level 3.9 Chloride Level 105 Carbon Dioxide Level 24.4 Anion Gap 6 Blood Urea Nitrogen 11 Creatinine 0.71 Estimat Glomerular Filtration 112 Rate Random Glucose 174 Calcium Level 8.5 Estevan Link PhD Jan 11, 2017 14:35
--- NOTE | 2017-01-11 14:50 | PD.CONS ---
Assessment and Plan Assessment Consult received per stroke order set. EMR reviewed. MRI negative for acute stroke. Neurology consult reviewed and indicates orthostatic hypotension. Consult deferred due to no acute stroke. Please reconsult as appropriate. Thank you. Kaley Huerta MD Jan 11, 2017 14:50
[2017-01-11 16:17] LABS: BACTERIA, URINE RARE /hpf; BLOOD, URINE NEG (NEG); COMMENT (UR) CULT NOT INDICATED; CULTURE IF INDICATED CULT NOT INDICATED; GLUCOSE,URINE 150 mg/dL (NEG); KETONE, URINE NEG (NEG); MUCUS URINE FEW /lpf (OCC); NITRITE,URINE NEG (NEG); SQUAMOUS EPITHELIAL CELL URINE <1 /hpf (0-5); URINE COLOR YELLOW (YELLW/STRAW)
--- NOTE | 2017-01-11 16:34 | ECHRPT ---
Indication: CVA/TIA CONCLUSIONS Poor echocardiographic windows Normal left ventricular size. The left ventricular systolic function is normal with an estimated ejection fraction in the range of 55-60%. No significant valvulopathies BP: 141 / 65 HR: 102 Rhythm: Sinus MEASUREMENTS (Male / Female) Normal Values Technical Quality:Fair 2D ECHO LV Diastolic Diameter PLAX 4.5 cm 4.2 - 5.9 / 3.9 - 5.3 cm LV Systolic Diameter PLAX 3.0 cm IVS Diastolic Thickness 1.1 cm 0.6 - 1.0 / 0.6 - 0.9 cm LVPW Diastolic Thickness 1.2 cm 0.6 - 1.0 / 0.6 - 0.9 cm LV Relative Wall Thickness 0.5 LVOT Diameter 2.0 cm LA Systolic Diameter LX 3.5 cm 3.0 - 4.0 / 2.7 - 3.8 cm LV Ejection Fraction MOD 4C 62.1 % LV Cardiac Index MOD 4C 2026.4 cm/minm LV Ejection Fraction 4C AL 64.1 % LV Cardiac Index 4C AL 2195.0 cm/minm M-MODE Aortic Root Diameter MM 3.0 cm DOPPLER AV Peak Velocity 174.0 cm/s AV Peak Gradient 12.1 mmHg LVOT Peak Velocity 111.0 cm/s LVOT Peak Gradient 4.9 mmHg AV Area Cont Eq pk 2.0 cm MV Area PHT 4.8 cm Mitral E Point Velocity 93.3 cm/s Mitral A Point Velocity 93.8 cm/s Mitral E to A Ratio 1.0 FINDINGS LEFT VENTRICLE Normal left ventricular size. The left ventricular systolic function is normal with an estimated ejection fraction in the range of 55-60%. RIGHT VENTRICLE Normal right ventricular size and systolic function. LEFT ATRIUM The left atrial size is normal. RIGHT ATRIUM The right atrial size is normal. ATRIAL SEPTUM Normal atrial septal thickness without atrial level shunting by limited color doppler interrogation. AORTA The aortic root and proximal ascending aorta are normal in size on limited imaging. MITRAL VALVE Structurally normal mitral valve. No mitral valve stenosis or regurgitation. AORTIC VALVE Trileaflet aortic valve. No aortic valve stenosis or regurgitation. TRICUSPID VALVE Structurally normal tricuspid valve. No tricuspid valve stenosis or regurgitation. PULMONARY VALVE The pulmonary valve is not well visualized. VESSELS The inferior vena cava is normal in size. PERICARDIUM No pericardial effusion. Tano Palacios MD (Electronically Signed) Final Date:11 January 2017 16:32
--- NOTE | 2017-01-12 07:43 | MG ---
cc: LAUREANO MCKEON M.D. Lab No: [id number] Date: 01/12/2017 Age: ___Sex: M Race: __ INDICATIONS Hyperventilation not performed. Awake and drowsy found down by family, slurred speech, TIA/CVA. MEDICATIONS 1. Plavix 2. Prednisone DESCRIPTION Diffuse alpha and beta waves were seen which were synchronous and symmetric. At times, the patient appears to be in a light sleep, does not quite reach stage II sleep. Photic stimulation was performed without significant posterior driving. IMPRESSION A normal awake and sleep EEG. No evidence for a focal or diffuse abnormality. MD CONSTANTINO Cruz/CAROLIN /7:30 AM /7:34 AM
[2017-02-13] MEDS ORDERED: HYDR-3800 PO (08:15)
[2017-02-13] MEDS ORDERED: METF500T PO (08:15)
== END 2017-01-11 18:30 | disposition home or self-care (01) | DRG 312 ==
LOC: NEPC 14:09 → NEDA 17:41 → HOCA 19:03
PROVIDERS: ADMIT Family Medicine; ATTEND Family Medicine
DX: I95.1 Orthostatic hypotension (principal); G20 Parkinson's disease; E86.0 Dehydration; E11.9 Type 2 diabetes mellitus without complications; G47.33 Obstructive sleep apnea (adult) (pediatric); I10 Essential (primary) hypertension; R32 Unspecified urinary incontinence; R47.1 Dysarthria and anarthria; F41.8 Other specified anxiety disorders; F17.200 Nicotine dependence, unspecified, uncomplicated; F41.0 Panic disorder [episodic paroxysmal anxiety]; W18.30XA Fall on same level, unspecified, initial encounter; Z79.4 Long term (current) use of insulin; Z86.73 Personal history of transient ischemic attack (TIA), and cerebral infarction without residual deficits
CPT/HCPCS: 36600; 70450; 70544; 70551; 71010; 76937; 80048; 80053; 80061; 80307; 81001; 82550; 82552; 82607; 82746; 82805; 82948; 83036; 84484; 85025; 86592; 93005; 93306; 93880; 94150; 94640; 94664; 95819; 96360; J1650; J1815; J2270; J7030; J7512

== ENCOUNTER 2017-05-27 10:49 | Emergency (ER) | payer MEDICARE ==
[2017-05-27 10:49] VITALS: BP 108/63; PULSE 76; RESP 16; TEMP 97.6; O2SAT 99
[~2017-05-27 10:49] MED LIST changes: -ASPI-156 PO; -ERGO1CAP10 PO; -HYDR50TA15 PO; +LIPI10TA PO; -NOVOLOGSS SQ; -PRIM50TA5 PO; -[UNRECOGNIZED DRUG - CODE] PO
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
--- NOTE | 2017-05-27 11:26 | RADRPT ---
EXAM DATE/TIME: 05/27/2017 11:13 [place] COMPARISON: CT BRAIN W/O CONTRAST, January 09, 2017, 15:31. INDICATIONS : Fell and hit forehead. Right frontal laceration. RADIATION DOSE: 59.25 CTDIvol (mGy) MEDICAL HISTORY : Cerebrovascular disease. Parkinsons. Chronic obstructive pulmonary disease.Anticoagulant therapy. Hyp ertension. Diabetes. SURGICAL HISTORY : Craniotomy. Arterial stents. ENCOUNTER: Initial ACUITY: 1 day PAIN SCALE: 5/10 LOCATION: Right frontal TECHNIQUE: Multiple contiguous axial images were obtained of the head. Using automated exposure control and adj ustment of the mA and/or kV according to patient size, radiation dose was kept as low as reasonably a chievable to obtain optimal diagnostic quality images. DICOM format image data is available electro nically for review and comparison. FINDINGS: CEREBRUM: The ventricles are normal for age. No evidence of midline shift, mass lesion, hemorrhage or acute in farction. No extra-axial fluid collections are seen. POSTERIOR FOSSA: The cerebellum and brainstem are intact. The 4th ventricle is midline. The cerebellopontine angle i s unremarkable. EXTRACRANIAL: The visualized portion of the orbits is intact. There is mild soft tissue swelling at the right front al scalp. SKULL: The calvaria is intact. No evidence of skull fracture. CONCLUSION: No intracranial abnormality is seen. There is minimal right frontal scalp swelling. Ezequiel Adamson MD on May 27, 2017 at 11:23 Board Certified Radiologist. This report was verified electronically.
[2017-06-01] MEDS ORDERED: NORC5TAB PO (08:43)
== END 2017-05-27 12:27 | disposition home or self-care (01) ==
LOC: PHEFT 10:49
DX: S01.81XA Laceration without foreign body of other part of head, initial encounter (principal); S09.90XA Unspecified injury of head, initial encounter; W18.09XA Striking against other object with subsequent fall, initial encounter
CPT/HCPCS: 12013; 70450